=== PATIENT | male | born 1965 | race Caucasian/White ===

== ENCOUNTER 2016-10-19 19:39 | Emergency (ER) | payer MEDICAID, OTHER ==
[~2016-10-19] VITALS: Ht 175.3 cm; Wt 60.0 kg
[2016-10-19 20:08] VITALS: BP 141/83; PULSE 83; RESP 18; TEMP 98.3; O2SAT 97
[2016-10-19] MEDS ORDERED: BACT400T PO (22:50)
[2016-10-19] MEDS ORDERED: VENTAER INH (22:50)
[2016-10-19] MEDS ORDERED: SODIUM CHLOR 0.9% 1000 ML INJ 1,000 ML IV SCH (22:53)
[2016-10-19 23:00] VITALS: RESP 18; O2SAT 97
[2016-10-19] MEDS ORDERED: SODIUM CHLORIDE 0.9% FLUSH 10 ML FLUSH IV FLUSH PRN (23:00)
[2016-10-19] MEDS ORDERED: PANTOPRAZOLE SODIUM 40 MG VIAL IV PUSH ONE (23:00)
[2016-10-19] MEDS ORDERED: ONDANSETRON HCL 4 MG/2 ML VIAL IVP ONE (23:00)
[2016-10-19] MEDS ORDERED: KETOROLAC TROMETHAMINE 30 MG/ML (IVP) VIAL IVP ONE (23:00)
--- NOTE | 2016-10-19 23:55 | PD ---
HPI Chief Complaint: Abdominal Pain Time Seen by Provider: 22:53 Travel History International Travel<30 days: No Contact w/Intl Traveler<30days: No Traveled to known affect area: No History of Present Illness HPI 50-year-old male presents to the emergency department by private transportation for evaluation of 2 days of abdominal pain. Patient also complains of chronic back pain. Patient reports he recently completed a 4 week course of antibiotic and is on oral Bactrim twice daily for a back skin infection. Patient denies having any surgery for his back infection. Patient does not know if he had an MRI. Patient presents with paperwork from [place] where he was reportedly admitted. Patient states he admitted to the hospital for 18 days. Paperwork does suggest that he underwent a transesophageal echocardiogram but patient does not recall this and does not recall a diagnosis of epidural abscess or endocarditis. Patient admits to substance use and states he is only recently been using marijuana but has used IV drugs in the past "not since March 2016 ". Patient denies any fever or chills. Patient reports that he is here because of his abdominal pain. Patient is not reporting lower extremity numbness tingling or weakness; does have chronic referred pain to the left lower extremity associated with his chronic back pain. No bladder or bowel dysfunction. Patient denies any fever or chills. Denies any vomiting or diarrhea. Patient rates his abdominal pain 10/10 in intensity. Patient unable to identify exacerbating or alleviating factors. Patient reports that he is here visiting from [place] and staying with his daughter. PFSH Past Medical History Narrative Medical asthma, tobacco use substance use; nursing notes reviewed Asthma: Yes Diminished Hearing: No Respiratory: Yes Immunizations Current: Yes Tetanus Vaccination: Unknown Influenza Vaccination: No Social History Alcohol Use: No Tobacco Use: Yes Substance Use: No Allergies-Medications (Allergen,Severity, Reaction): Coded Allergies: No Known Allergies (Unverified , 10/19/16) Reported Meds & Prescriptions Reported Meds & Active Scripts Active Protonix (Pantoprazole Sodium) 40 Mg Tab 40 Mg PO DAILY 14 Days Reported Bactrim (Sulfamethoxazole-Trimethoprim) 400-80 Mg Tab 1 Tab PO BID Ventolin Hfa 18 GM Inh (Albuterol Sulfate) 90 Mcg/Act Aer 2 Puff INH Q4-6H PRN Review of Systems Except as stated in HPI: all other systems reviewed are Neg General / Constitutional: No: Fever, Chills HENT: No: Congestion Cardiovascular: No: Chest Pain or Discomfort Respiratory: No: Cough, Shortness of Breath Gastrointestinal: Positive: Nausea, Abdominal Pain, No: Vomiting, Diarrhea, Hematemesis, Hematochezia, Loss of Appetite Genitourinary: No: Urgency, Frequency, Dysuria, Decreased Urinary Output, Hesitancy, Dribbling, Incontinence Musculoskeletal: Positive: Myalgias, Arthralgias, Pain (chonic back pain) Skin: No Rash Neurologic: No: Weakness, Dizziness, Syncope, Focal Abnormalities, Coordination Problem, Paresthesia, Incontinence, Sensory Disturbance Psychiatric: No: Anxiety Endocrine: No: Heat Intolerance Hematologic/Lymphatic: No: Easy Bruising Physical Exam Narrative GENERAL: Well-developed well-nourished male in no acute distress no respiratory distress laying prone on the exam stretcher. SKIN: Warm and dry. HEAD: Normocephalic. EYES: No scleral icterus. No injection or drainage. NECK: Supple, trachea midline. No JVD or lymphadenopathy. CARDIOVASCULAR: Regular rate and rhythm without murmurs, gallops, or rubs. RESPIRATORY: Breath sounds equal bilaterally. No accessory muscle use. GASTROINTESTINAL: Abdomen soft, diffusely tender to palpation without guarding or rebound, nondistended. MUSCULOSKELETAL: No cyanosis, or edema. Bilateral motor strength 5 over 5 in intensity. Radial and dorsalis pedis pulses 2+ to palpation. BACK: Tender to palpation along the lower thoracic and lumbar spine no redness no induration no fluctuance no edema; without obvious deformity. No CVA tenderness. Pain in the left SI elevation of the left lower extremity. DTRs 2 + and symmetric without clonus. Sensory exam intact. Bilateral radial and dorsalis pedis pulses 2+ to palpation. Data Data Last Documented VS Vital Signs Date Time Temp Pulse Resp B/P Pulse Ox O2 Delivery O2 Flow Rate FiO2 10/20/16 03:25 87 18 101/75 98 10/20/16 02:10 Room Air 10/19/16 20:08 98.3 Orders Complete Blood Count With Diff (10/19/16 22:53) Comprehensive Metabolic Panel (10/19/16 22:53) Lipase (10/19/16 22:53) Lactic Acid (10/19/16 22:53) Prothrombin Time / Inr (Pt) (10/19/16 22:53) Act Partial Throm Time (Ptt) (10/19/16 22:53) Urinalysis - C+S If Indicated (10/19/16 22:53) Ct Abd/Pel W Iv Contrast(Rout) (10/19/16 22:53) Iv Access Insert/Monitor (10/19/16 22:53) Ecg Monitoring (10/19/16 22:53) Oximetry (10/19/16 22:53) Ondansetron Inj (Zofran Inj) (10/19/16 23:00) Sodium Chlor 0.9% 1000 Ml Inj (Ns 1000 M (10/19/16 22:53) Sodium Chloride 0.9% Flush (Ns Flush) (10/19/16 23:00) Electrocardiogram (10/19/16 22:53) Chest, Single Ap (10/19/16 22:53) Ketorolac Inj (Toradol Inj) (10/19/16 23:00) Westergren Sedimentation Rate (10/19/16 22:53) Pantoprazole Inj (Protonix Inj) (10/19/16 23:00) Alcohol (Ethanol) (10/19/16 22:53) Drug Screen, Random Urine (10/19/16 22:53) Magnesium (Mg) (10/19/16 22:53) Iohexol 350 Inj (Omnipaque 350 Inj) (10/20/16 01:15) Ketorolac Inj (Toradol Inj) (10/20/16 02:00) Pantoprazole (Protonix) (10/20/16 03:00) Labs Laboratory Tests Test 10/19/16 23:40 White Blood Count 6.5 TH/MM3 Red Blood Count 4.85 MIL/MM3 Hemoglobin 13.7 GM/DL Hematocrit 41.5 % Mean Corpuscular Volume 85.6 FL Mean Corpuscular Hemoglobin 28.2 PG Mean Corpuscular Hemoglobin 33.0 % Concent Red Cell Distribution Width 14.0 % Platelet Count 306 TH/MM3 Mean Platelet Volume 9.1 FL Neutrophils (%) (Auto) 66.2 % Lymphocytes (%) (Auto) 22.0 % Monocytes (%) (Auto) 7.3 % Eosinophils (%) (Auto) 1.4 % Basophils (%) (Auto) 3.1 % Neutrophils # (Auto) 4.3 TH/MM3 Lymphocytes # (Auto) 1.4 TH/MM3 Monocytes # (Auto) 0.5 TH/MM3 Eosinophils # (Auto) 0.1 TH/MM3 Basophils # (Auto) 0.2 TH/MM3 CBC Comment DIFF FINAL Differential Comment Erythrocyte Sedimentation Rate 43 mm/hr Prothrombin Time 11.0 SEC Prothromb Time International 1.0 RATIO Ratio Activated Partial 23.3 SEC Thromboplast Time Urine Color YELLOW Urine Turbidity CLEAR Urine pH 6.5 Urine Specific [place] 1.012 Urine Protein NEG mg/dL Urine Glucose (UA) NEG mg/dL Urine Ketones NEG mg/dL Urine Occult Blood NEG Urine Nitrite NEG Urine Bilirubin NEG Urine Leukocyte Esterase NEG Urine RBC 0-2 /hpf Urine WBC 0-2 /hpf Urine Squamous Epithelial 0-5 /hpf Cells Urine Amorphous Sediment SMALL Urine Bacteria NONE /hpf Microscopic Urinalysis Comment CULT NOT INDICATED Sodium Level 138 MEQ/L Potassium Level 4.2 MEQ/L Chloride Level 102 MEQ/L Carbon Dioxide Level 29.2 MEQ/L Anion Gap 7 MEQ/L Blood Urea Nitrogen 11 MG/DL Creatinine 0.72 MG/DL Estimat Glomerular Filtration 116 ML/MIN Rate Random Glucose 92 MG/DL Lactic Acid Level 1.4 mmol/L Calcium Level 9.5 MG/DL Magnesium Level 1.8 MG/DL Total Bilirubin 0.4 MG/DL Aspartate Amino Transf 41 U/L (AST/SGOT) Alanine Aminotransferase 54 U/L (ALT/SGPT) Alkaline Phosphatase 115 U/L Total Protein 7.1 GM/DL Albumin 2.6 GM/DL Lipase 155 U/L Urine Opiates Screen NEG Urine Barbiturates Screen NEG Urine Amphetamines Screen NEG Urine Benzodiazepines Screen NEG Urine Cocaine Screen NEG Urine Cannabinoids Screen POS Ethyl Alcohol Level LESS THAN 3 MG/DL [facility] Medical Decision Making Medical Screen Exam Complete: Yes Emergency Medical Condition: Yes Medical Record Reviewed: Yes Interpretation(s) Urine drug screen: Positive for cannabinoids Urinalysis: Within normal limits Lactic acid: 1.4, not elevated Sedimentation rate: 45, elevated EKG sinus rhythm rate [address] elevation or injury pattern change noted Last Impressions Chest X-Ray 10/19/162252 Signed Impressions: Service Date/Time: , October 19, 2016 23:47 - CONCLUSION: Hyperinflation suggesting COPD. No acute infiltrate or effusion. Cameron Madison Jr., MD Abdomen/Pelvis CT [id number]/19/162252 Signed Impressions: Service Date/Time: Thursday, October 20, 2016 00:48 - CONCLUSION: Normal examination. Cameron Madison Jr., MD CBC & BMP Diagram 10/19/16 23:40 Differential Diagnosis Abdominal pain, diverticulitis, colitis, appendicitis, UTI, pancreatitis, sciatica, HNP, epidural abscess, substance abuse, drug-seeking behavior Narrative Course IV access obtained specimens collected and sent for resulting imaging studies ordered Patient given IV fluids and Toradol 30 mg IV Patient administered Protonix [address] abdomen and pelvis pending At 3 AM patient is able to ambulate about the emergency department without any difficulty; patient is encouraged to follow-up with his primary care provider and complete course of oral antibiotic; she has no reproducible tenderness to direct palpation along the lumbar spine no bladder or bowel dysfunction and has chronic back pain with referred sciatica affecting the left lower extremity. No lower extremity numbness tingling or weakness. No clonus or hyperreflexia. Sensory and motor exams are intact. Abdomen is soft and nontender at this time. CT abdomen and pelvis reveals no acute abnormality. Patient will be discharged with prescription for Protonix for gastritis. Diagnosis Primary Impression: Gastritis Qualified Code: K29.00 - Acute gastritis without hemorrhage, unspecified gastritis type Additional Impression: Sciatica of left side Referrals: Primary Care Physician 1 day Patient Instructions: General Instructions Additional Instructions: Apply moist heat to low back area for comfort purposes Monitor temperature every 4 hours with thermometer take as needed acetaminophen/ Tylenol for fever 100.4F or greater Avoid nonsteroidal anti-inflammatory medication such as ibuprofen/Advil/Motrin or Aleve/Naprosyn/naproxen Take Protonix daily as prescribed Complete course of antibiotic as prescribed Return to the emergency department for any concerns or change in condition Med/Other Pt SpecificInfo: Prescription(s) given Scripts Pantoprazole (Protonix)40 Mg Tab40 Mg PO DAILY 14 Days Ref 0 Prov:Christina Boateng MD 10/20/16 Disposition: 01 DISCHARGE HOME Condition: Stable Christina Boateng MD Oct 19, 2016 23:55
[2016-10-19 23:59] LABS: BLOOD, URINE NEG (NEG); GLUCOSE,URINE NEG (NEG); KETONE, URINE NEG (NEG); NITRITE,URINE NEG (NEG); PH, URINE 6.5 (5.0-8.5)
[2016-10-20 00:04] LABS: AUTOMATED NEUTROPHIL # 4.3 TH/MM3 (1.8-7.7); BASOPHIL # 0.2 TH/MM3 (0-0.2); BASOPHIL % 3.1 % (0.0-2.0); EOSINOPHIL # 0.1 TH/MM3 (0-0.4); EOSINOPHIL % 1.4 % (0.0-4.0); HEMATOCRIT 41.5 % (39.0-51.0); HEMO FLAGS DIFF FINAL; LYMPHOCYTE # 1.4 TH/MM3 (1.0-4.8); MEAN CELL VOLUME 85.6 FL (80.0-100.0); MEAN CORPUSCULAR HEMOGLOBIN 28.2 PG (27.0-34.0); MONO % 7.3 % (0.0-8.0); NEUT % 66.2 % (16.0-70.0); PLATELET COUNT 306 TH/MM3 (150-450); RED BLOOD COUNT 4.85 MIL/MM3 (4.50-5.90); WHITE BLOOD COUNT 6.5 TH/MM3 (4.0-11.0)
[2016-10-20 00:09] LABS: URINE COLOR YELLOW (YELLW/STRAW); WBC, URINE 0-2 /hpf (0-5)
[2016-10-20 00:10] VITALS: BP 163/89; PULSE 63; RESP 18; O2SAT 100
[2016-10-20 00:10] LABS: AMPHETAMINE, URINE NEG (NEG); BARBITURATES, URINE NEG (NEG); COCAINE, URINE NEG (NEG); COMMENT (UR) CULT NOT INDICATED; CULTURE IF INDICATED CULT NOT INDICATED; RBC, URINE 0-2 /hpf (0-3); SQUAMOUS EPITHELIAL CELL URINE 0-5 /hpf (0-5)
[2016-10-20 00:11] LABS: CHLORIDE 102 MEQ/L (98-107); POTASSIUM 4.2 MEQ/L (3.5-5.1); SODIUM (NA) 138 MEQ/L (136-145)
[2016-10-20 00:15] LABS: ANION GAP 7 MEQ/L (5-15); APTT (PATIENT) 23.3 SEC (24.3-30.1); BICARBONATE 29.2 MEQ/L (21.0-32.0); BLOOD UREA NITROGEN 11 MG/DL (7-18); MAGNESIUM 1.8 MG/DL (1.5-2.5)
[2016-10-20 00:18] LABS: ALT (GPT) 54 U/L (12-78); AST (GOT) 41 U/L (15-37); GLOMERULAR FILTRATION RATE 116 ML/MIN (>89)
[2016-10-20 00:20] LABS: TOTAL BILIRUBIN ADULT 0.4 MG/DL (0.2-1.0)
[2016-10-20 00:21] LABS: ALKALINE PHOSPHATASE 115 U/L (45-117)
--- NOTE | 2016-10-20 00:25 | RADHPO ---
EXAM DATE/TIME: 10/19/2016 23:47 [facility] COMPARISON: No previous studies available for comparison. INDICATIONS : Chest pain for 3 weeks MEDICAL HISTORY : None. SURGICAL HISTORY : None. ENCOUNTER: Initial ACUITY: 3 weeks PAIN SCORE: 10/10 LOCATION: Bilateral chest FINDINGS: 2 portable frontal views of the chest demonstrate the lungs to be symmetrically aerated without evide nce of mass, infiltrate or effusion. The lungs are hyperinflated. 2 small calcified granulomas are se en involving the right upper lobe. The cardiomediastinal contours are unremarkable. Osseous structu res are intact. CONCLUSION: Hyperinflation suggesting COPD. No acute infiltrate or effusion. Cameron Madison Jr., MD on October 20, 2016 at 0:23 Board Certified Radiologist. This report was verified electronically.
[2016-10-20] MEDS ORDERED: IOHEXOL 350 MG/ML 10 ML VIAL (for RAD DIAG) IV ONE (01:15)
[2016-10-20 01:18] VITALS: BP 125/82; PULSE 90; RESP 18; O2SAT 98
--- NOTE | 2016-10-20 01:29 | RADHPO ---
EXAM DATE/TIME: 10/20/2016 00:48 [facility] COMPARISON: No previous studies available for comparison. INDICATIONS : Diffuse abdominal pain for two days. IV CONTRAST: 96 cc Omnipaque 350 (iohexol) IV ORAL CONTRAST: No oral contrast ingested. RADIATION DOSE: 5.03 CTDIvol (mGy) MEDICAL HISTORY : None SURGICAL HISTORY : None. ENCOUNTER: Initial ACUITY: 2 days PAIN SCALE: 6/10 LOCATION: Abdomen. TECHNIQUE: Volumetric scanning of the abdomen and pelvis was performed. Using automated exposure control and ad justment of the mA and/or kV according to patient size, radiation dose was kept as low as reasonably achievable to obtain optimal diagnostic quality images. FINDINGS: LOWER LUNGS: The visualized lower lungs are clear. LIVER: Homogeneous density without lesion. There is no dilation of the biliary tree. No calcified gallston es. SPLEEN: Normal size without lesion. PANCREAS: Within normal limits. KIDNEYS: Normal in size and shape. There is no mass, stone or hydronephrosis. ADRENAL GLANDS: Within normal limits. VASCULAR: There is no aortic aneurysm. BOWEL/MESENTERY: The stomach, small bowel, and colon demonstrate no acute abnormality. There is no free intraperitone al air or fluid. ABDOMINAL WALL: Within normal limits. RETROPERITONEUM: There is no lymphadenopathy. BLADDER: No wall thickening or mass. REPRODUCTIVE: Within normal limits. INGUINAL: There is no lymphadenopathy or hernia. MUSCULOSKELETAL: Within normal limits for patient age. CONCLUSION: Normal examination. Cameron Madison Jr., MD on October 20, 2016 at 1:26 Board Certified Radiologist. This report was verified electronically.
[2016-10-20] MEDS ORDERED: KETOROLAC TROMETHAMINE 30 MG/ML (IVP) VIAL IV PUSH ONE (02:00)
[2016-10-20 02:10] VITALS: BP 111/76; PULSE 74; RESP 17; O2SAT 95
[2016-10-20] MEDS ORDERED: PANTOPRAZOLE SOD 40 MG DELAYED RELEASE TAB PO ONE (03:00)
[2016-10-20] MEDS ORDERED: PROT40TA PO (03:00)
[2016-10-20 03:08] VITALS: RESP 18
[2016-10-20 03:25] VITALS: BP 101/75
--- NOTE | 2016-10-20 18:46 | EKG ---
Date Performed: 10/20/2016 Time Performed: 01:34:34 PTAGE: 50 years EKG: Sinus arrhythmia. Septal ST-T changes are nonspecific Borderline ECG NO PREVIOUS TRACING DOCTOR: Yasir Phillips Interpretating Date/Time 10/20/2016 18:57:26
== END 2016-10-20 03:27 | disposition home or self-care (01) ==
LOC: PHED 19:39
DX: K29.00 Acute gastritis without bleeding (principal); M54.42 Lumbago with sciatica, left side; G89.29 Other chronic pain; I49.8 Other specified cardiac arrhythmias; J45.909 Unspecified asthma, uncomplicated; Z72.0 Tobacco use; F19.10 Other psychoactive substance abuse, uncomplicated; R11.0 Nausea
CPT/HCPCS: 71010; 74177; 80053; 80307; 81001; 83605; 83690; 83735; 85025; 85610; 85652; 85730; 93005; 96361; 96374; 96375; 96376; 99284; C9113; J1885; J2405; J7030; Q9967

== ENCOUNTER 2016-11-22 13:11 | Inpatient (IN) | payer MEDICAID ==
[~2016-11-22] VITALS: Ht 175.3 cm; Wt 68.0 kg
[2016-11-22] VITALS (8 sets, daily range): BP systolic 106–117; BP diastolic 61–85; PULSE 85–126; RESP 18–24; TEMP 96.4–100.7; O2SAT 93–96
[~2016-11-22 13:11] MED LIST: BACT400T PO; PROT40TA PO; VENTAER INH
[2016-11-22] MEDS ORDERED: SODIUM CHLOR 0.9% 1000 ML INJ 1,000 ML IV ONE ×2 (13:29)
[2016-11-22] MEDS ORDERED: SODIUM CHLOR 0.9% 1000 ML INJ 100 ML IV ONE (13:29)
[2016-11-22] MEDS ORDERED: TETANUS/DIPHTHERIA TOXOID ADULT 0.5 ML VIAL IM ONE (13:30)
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
--- NOTE | 2016-11-22 13:56 | PD ---
Physical Exam Date Seen by Provider: November 22, 2016 Time Seen by Provider: 13:49 Narrative 51-year-old male with a previous history of lower extremity DVT, previous epidural abscess, presents today with complaints of left lower back pain, low- grade fever, tachycardia. The patient was admitted for several weeks when he lived in [place] for the epidural abscess. He presents today with complaints of worsening pain in his low back and concerns that this may be recurrence of his epidural abscess. He also reports head pain and face pain from a fall. Data Data Last Documented VS Vital Signs Date Time Temp Pulse Resp B/P Pulse Ox O2 Delivery O2 Flow Rate FiO2 11/22/16 16:56 103 18 117/68 11/22/16 15:15 Room Air 11/22/16 13:32 93 11/22/16 13:31 100.7 Orders Electrocardiogram (11/22/16 13:29) Complete Blood Count With Diff (11/22/16 13:29) Comprehensive Metabolic Panel (11/22/16 13:29) Prothrombin Time / Inr (Pt) (11/22/16 13:29) Act Partial Throm Time (Ptt) (11/22/16 13:29) Lactic Acid Sepsis Protocol (11/22/16 13:29) Magnesium (Mg) (11/22/16 13:29) Urinalysis - C+S If Indicated (11/22/16 13:29) Blood Culture (11/22/16 13:29) Chest, Single Ap (11/22/16 13:29) Blood Glucose (11/22/16 13:29) Ecg Monitoring (11/22/16 13:29) Iv Access Insert/Monitor (11/22/16 13:29) Oximetry (11/22/16 13:29) Oxygen Administration (11/22/16 13:29) Sodium Chlor 0.9% 1000 Ml Inj (Ns 1000 M (11/22/16 13:29) Sodium Chlor 0.9% 1000 Ml Inj (Ns 1000 M (11/22/16 13:29) Sodium Chlor 0.9% 1000 Ml Inj (Ns 1000 M (11/22/16 13:29) Ct Brain W/O Iv Contrast(Rout) (11/22/16 ) Ct Facial Bones W/O Iv Cont (11/22/16 ) Mri Sacrum/Coccyx W&W/O Cont (11/22/16 ) Mri L Spine W&W/O Contrast (11/22/16 ) Tetanus/Diphtheria Tox Adult (Tetanus/Di (11/22/16 13:30) Creatine Kinase (Cpk) (11/22/16 13:29) Us Leg Venous Doppler (11/22/16 13:33) Vancomycin Inj (Vancomycin Inj) (11/22/16 14:30) Piperacil-Tazo 3.375 Gm Premix (Zosyn 3. (11/22/16 14:30) CKMB (11/22/16 13:40) CKMB% (11/22/16 13:40) Morphine Inj (Morphine Inj) (11/22/16 16:00) Labs Laboratory Tests Test 11/22/16 13:40 White Blood Count 11.0 TH/MM3 Red Blood Count 4.43 MIL/MM3 Hemoglobin 12.8 GM/DL Hematocrit 37.5 % Mean Corpuscular Volume 84.8 FL Mean Corpuscular Hemoglobin 28.9 PG Mean Corpuscular Hemoglobin 34.1 % Concent Red Cell Distribution Width 14.3 % Platelet Count 151 TH/MM3 Mean Platelet Volume 8.4 FL Neutrophils (%) (Auto) 89.8 % Lymphocytes (%) (Auto) 4.7 % Monocytes (%) (Auto) 5.0 % Eosinophils (%) (Auto) 0.4 % Basophils (%) (Auto) 0.1 % Neutrophils # (Auto) 9.9 TH/MM3 Lymphocytes # (Auto) 0.5 TH/MM3 Monocytes # (Auto) 0.6 TH/MM3 Eosinophils # (Auto) 0.0 TH/MM3 Basophils # (Auto) 0.0 TH/MM3 CBC Comment DIFF FINAL Differential Comment Prothrombin Time 11.4 SEC Prothromb Time International 1.0 RATIO Ratio Activated Partial 25.3 SEC Thromboplast Time Sodium Level 137 MEQ/L Potassium Level 3.5 MEQ/L Chloride Level 101 MEQ/L Carbon Dioxide Level 24.1 MEQ/L Anion Gap 12 MEQ/L Blood Urea Nitrogen 13 MG/DL Creatinine 1.18 MG/DL Estimat Glomerular Filtration 65 ML/MIN Rate Random Glucose 131 MG/DL Lactic Acid Level 5.8 mmol/L Calcium Level 8.6 MG/DL Magnesium Level 2.5 MG/DL Total Bilirubin 0.6 MG/DL Aspartate Amino Transf 188 U/L (AST/SGOT) Alanine Aminotransferase 51 U/L (ALT/SGPT) Alkaline Phosphatase 94 U/L Total Creatine Kinase 9636 U/L Creatine Kinase MB 38.5 NG/ML Creatine Kinase MB % 0.4 % Total Protein 5.8 GM/DL Albumin 2.8 GM/DL [facility] Medical Record Reviewed: Yes Supervised Visit with LACEY: Yes Differential Diagnosis Recurrent epidural abscess versus pneumonia versus UTI versus metabolic derangement Narrative Course 51-year-old male presents with fever back pain. The patient has a history of previous IVD drug use and epidural abscess. He was concerned he may have an epidural abscess. The patient meet severe sepsis criteria by labs and vital signs. He's been started on vancomycin and Zosyn. Working diagnosis is sepsis secondary to the sacroiliitis. There is a call out to the [facility] hospitalist team for admission. He meets full admission criteria. Sepsis Criteria SIRS Criteria (2 or more): Heart rate over 90, WBC > 67795, < 4000 or > 10% bands Severe Sepsis (+one): Lactate >2 Septic Shock Criteria: Lactic acid >=4 Diagnosis Primary Impression: Sepsis Additional Impressions: Sacroiliitis history of epidural abscess previous history of IVD drug use Rhabdomyolysis Admitting Information Admitting Physician Requests: Admit Bigg Barahona MD November 22, 2016 13:56
[2016-11-22 13:58] LABS: AUTOMATED NEUTROPHIL # 9.9 TH/MM3 (1.8-7.7); BASOPHIL % 0.1 % (0.0-2.0); EOSINOPHIL % 0.4 % (0.0-4.0); HEMATOCRIT 37.5 % (39.0-51.0); HEMO FLAGS DIFF FINAL; LYMPH % 4.7 % (9.0-44.0); LYMPHOCYTE # 0.5 TH/MM3 (1.0-4.8); MEAN CELL VOLUME 84.8 FL (80.0-100.0); MEAN CORPUSCULAR HEMOGLOBIN 28.9 PG (27.0-34.0); MEAN CORPUSCULAR HGB CONC 34.1 % (32.0-36.0); NEUT % 89.8 % (16.0-70.0); PLATELET COUNT 151 TH/MM3 (150-450); RED BLOOD COUNT 4.43 MIL/MM3 (4.50-5.90); RED CELL DISTRIBUTION WIDTH 14.3 % (11.6-17.2)
[2016-11-22 14:07] LABS: APTT (PATIENT) 25.3 SEC (24.3-30.1); PROTHROMBIN TIME - PATIENT 11.4 SEC (9.8-11.6)
[2016-11-22 14:20] LABS: ALT (GPT) 51 U/L (12-78); ANION GAP 12 MEQ/L (5-15); AST (GOT) 188 U/L (15-37); BICARBONATE 24.1 MEQ/L (21.0-32.0); BLOOD UREA NITROGEN 13 MG/DL (7-18); CHLORIDE 101 MEQ/L (98-107); GLOMERULAR FILTRATION RATE 65 ML/MIN (>89); MAGNESIUM 2.5 MG/DL (1.5-2.5); POTASSIUM 3.5 MEQ/L (3.5-5.1); SODIUM (NA) 137 MEQ/L (136-145)
[2016-11-22] MEDS ORDERED: PIPERACIL-TAZO 3.375 GM PREMIX 50 ML IV ONE (14:30)
[2016-11-22] MEDS ORDERED: VANCOMYCIN INJ 1,000 MG in SODIUM CHLOR 0.9% 250 ML INJ 250 ML IV ONE (14:30)
--- NOTE | 2016-11-22 14:31 | RADRPT ---
EXAM DATE/TIME: 11/22/2016 13:43 [facility] COMPARISON: CHEST SINGLE AP, October 19, 2016, 23:47. INDICATIONS : Fever and weakness. Patient fell today. MEDICAL HISTORY : Asthma. SURGICAL HISTORY : None. ENCOUNTER: Initial ACUITY: 1 day PAIN SCORE: 0/10 LOCATION: Bilateral chest FINDINGS: A single view of the chest demonstrates the lungs to be symmetrically aerated without evidence of mas s, infiltrate or effusion. The cardiomediastinal contours are unremarkable. Osseous structures are intact. CONCLUSION: No acute cardiopulmonary process. Fabio Srivastava MD on November 22, 2016 at 14:29 Board Certified Radiologist. This report was verified electronically.
[2016-11-22] MEDS ORDERED: GADODIAMIDE PF 287 MG/ML 5 ML VIAL (for RAD MRI) IV ONE (14:41)
[2016-11-22 14:45] LABS: ALKALINE PHOSPHATASE 94 U/L (45-117); CREATINE KINASE 9636 U/L (39-308); TOTAL BILIRUBIN ADULT 0.6 MG/DL (0.2-1.0)
--- NOTE | 2016-11-22 14:45 | RADRPT ---
EXAM DATE/TIME: 11/22/2016 14:26 [facility] COMPARISON: No previous studies available for comparison. INDICATIONS : Cephalgia. RADIATION DOSE: 45.80 CTDIvol (mGy) MEDICAL HISTORY : Cardiovascular disease. SURGICAL HISTORY : None. ENCOUNTER: Initial ACUITY: 2 days PAIN SCALE: 1/10 LOCATION: Bilateral cranial TECHNIQUE: Multiple contiguous axial images were obtained of the head. Using automated exposure control and adj ustment of the mA and/or kV according to patient size, radiation dose was kept as low as reasonably a chievable to obtain optimal diagnostic quality images. FINDINGS: CEREBRUM: The ventricles are normal for age. No evidence of midline shift, mass lesion, hemorrhage or acute in farction. No extra-axial fluid collections are seen. POSTERIOR FOSSA: The cerebellum and brainstem are intact. The 4th ventricle is midline. The cerebellopontine angle i s unremarkable. EXTRACRANIAL: The visualized portion of the orbits is intact. SKULL: The calvaria is intact. No evidence of skull fracture. CONCLUSION: Normal examination. Stevie Miller MD on November 22, 2016 at 14:43 Board Certified Radiologist. This report was verified electronically.
--- NOTE | 2016-11-22 14:59 | RADRPT ---
EXAM DATE/TIME: 11/22/2016 14:29 [facility] COMPARISON: No previous studies available for comparison. INDICATIONS : Cephalgia. RADIATION DOSE: 36.48 CTDIvol (mGy) MEDICAL HISTORY : Cardiovascular disease. SURGICAL HISTORY : None. ENCOUNTER: Initial ACUITY: 2 days PAIN SCORE: 1/10 LOCATION: Bilateral facial region. TECHNIQUE: Volumetric scanning of the facial bones was performed. Using automated exposure control and adjustme nt of the mA and/or kV according to patient size, radiation dose was kept as low as reasonably achiev able to obtain optimal diagnostic quality images. FINDINGS: ORBITS: The orbital and infraorbital osseous structures are intact. The retroconal structures have a normal configuration. No radiopaque foreign bodies are seen. NASAL BONE: The nasal bone and maxillary spine are intact ZYGOMATIC ARCHES: Symmetric without evidence of fracture. SINUSES: The maxillary, ethmoid and frontal sinuses are intact. No air-fluid levels seen. NASAL CAVITY: The nasal septum is intact and midline. The lacrimal ducts are intact. SOFT TISSUES: No radiopaque foreign bodies seen. No soft-tissue swelling is seen. INTRACRANIAL: No intracranial air seen. CRIBIFORM PLATE: Grossly intact. CONCLUSION: Normal examination. Stevie Miller MD on November 22, 2016 at 14:56 Board Certified Radiologist. This report was verified electronically.
[2016-11-22 15:02] LABS: CKMB 38.5 NG/ML (0.5-3.6)
[2016-11-22 15:53] LABS: LACTIC ACID GHOST NOT REPORTABLE
[2016-11-22] MEDS ORDERED: MORPHINE SULFATE 4 MG/ML INJ IV PUSH ONE (16:00)
--- NOTE | 2016-11-22 16:05 | RADRPT ---
EXAM DATE/TIME: 11/22/2016 13:49 [facility] COMPARISON: No previous studies available for comparison. INDICATIONS : Left leg pain. MEDICAL HISTORY : Asthma. GERD. Staph infection. SURGICAL HISTORY : None. ENCOUNTER: Initial ACUITY: 1 day PAIN SCORE: 10/10 LOCATION: Left leg. TECHNIQUE: Venous ultrasound of the leg was performed from the inguinal ligament to the proximal calf. Real-yamile e, color Doppler and spectral tracing, compression and augmentation techniques were used. FINDINGS: There is normal compressibility of the deep venous system from the inguinal region to the proximal ca lf. No echogenic clot is seen in the lumen of the common femoral, femoral, popliteal, and posterior tibial veins. There is a normal response of the venous system to proximal and distal augmentation an d respiration. CONCLUSION: Negative exam. No sonographic or Doppler findings of deep venous thrombosis. Fabio Srivastava MD on November 22, 2016 at 16:03 Board Certified Radiologist. This report was verified electronically.
--- NOTE | 2016-11-22 16:14 | RADRPT ---
EXAM DATE/TIME: 11/22/2016 14:41 [facility] COMPARISON: No previous studies available for comparison. INDICATIONS : Severe lower back pain with inability to walk and history of spinal staff infection. CONTRAST: 13 cc Omniscan (gadodiamide) IV MEDICAL HISTORY : Chronic obstructive pulmonary disease. SURGICAL HISTORY : Armpit abscess. ENCOUNTER: Initial ACUITY: 2 weeks PAIN SCORE: 6/10 LOCATION: lower back TECHNIQUE: Multiplanar multisequence MRI of the lumbar spine was performed with and without contrast. FINDINGS: The most caudal appearing lumbar vertebra is numbered as L5. VERTEBRAE: Homogeneous signal. Normal alignment. Scoliosis. CONUS: Normal level and configuration. POST CONTRAST: No abnormal areas of contrast enhancement are seen. Distended urinary bladder. T12-L1: The thecal sac has a normal diameter. No evidence of disc bulge or protrusion. The neural foramina are patent bilaterally. L1-L2: The thecal sac has a normal diameter. No evidence of disc bulge or protrusion. The neural foramina are patent bilaterally. L2-L3: Minimal broad-based disc bulge abuts ventral thecal sac without canal stenosis. The neural foramina are patent bilaterally. L3-L4: Minimal broad-based disc bulge abuts ventral thecal sac without canal stenosis. The neural foramina are patent bilaterally. L4-L5: The thecal sac has a normal diameter. No evidence of disc bulge or protrusion. The neural foramina are patent bilaterally. L5-S1: The thecal sac has a normal diameter. No evidence of disc bulge or protrusion. The neural foramina are patent bilaterally. CONCLUSION: 1. Scoliotic changes. 2. Minimal disc bulges at L2-3 and L3-4 levels. 3. No canal stenosis. 4. No epidural abscess. Jay Melendrez MD on November 22, 2016 at 16:10 Board Certified Radiologist. This report was verified electronically.
--- NOTE | 2016-11-22 16:29 | RADRPT ---
EXAM DATE/TIME: 11/22/2016 14:41 [facility] COMPARISON: MRI LUMBAR SPINE W & W/O CONTRAST, November 22, 2016, 14:41. INDICATIONS : Severe lower back pain with inability to walk and history of spinal staff infection. CONTRAST: 13 cc Omniscan (gadodiamide) IV MEDICAL HISTORY : Chronic obstructive pulmonary disease. SURGICAL HISTORY : armpit abscess ENCOUNTER: Initial ACUITY: 2 weeks PAIN SCORE: 6/10 LOCATION: lower back TECHNIQUE: Multiplanar multisequence MRI examination of the sacrum/coccyx was performed. FINDINGS: There is abnormal signal within and adjacent to the left sacroiliac joint with marrow edema and enhan cement. There is no significant joint fluid identified and no adjacent pelvic fluid collection is devin ntified. The contralateral right SI joint is intact and unremarkable. The bony elements of the pelvis are otherwise unremarkable. There is no evidence of soft tissue pelvic mass or adenopathy. Urinary b ladder is mildly distended. CONCLUSION: Left sacroiliitis. Adjacent bony changes are nonspecific with osteomyelitis not excluded. Alexis Duong MD on November 22, 2016 at 16:21 Board Certified Radiologist. This report was verified electronically.
[2016-11-22] MEDS ORDERED: ONDANSETRON HCL 4 MG/2 ML VIAL IVP PRN (17:30)
[2016-11-22] MEDS ORDERED: SODIUM CHLORIDE 0.9% FLUSH 10 ML FLUSH IV FLUSH PRN (17:30)
[2016-11-22] MEDS ORDERED: NALOXONE HCL 0.4 MG/ML AMP IV PRN (17:30)
[2016-11-22] MEDS ORDERED: Vancomycin Consult Pharmacy 1 EA OTHER SCH (17:30)
[2016-11-22] MEDS ORDERED: ENALAPRILAT 1.25 MG/ML VIAL IV PUSH PRN (17:30)
[2016-11-22] MEDS ORDERED: ACETAMINOPHEN/HYDROcodone 325 MG/5 MG TAB PO PRN (17:30)
[2016-11-22] MEDS ORDERED: ACETAMINOPHEN 325 MG TAB PO PRN ×2 (17:30)
[2016-11-22] MEDS ORDERED: MORPHINE SULFATE 4 MG/ML INJ IV PRN (17:30)
--- NOTE | 2016-11-22 17:34 | HHI.HP ---
[facility] No Primary Care Physician Admission Diagnosis severe sepsis, sacroiliitis, rhabdomyolysis Diagnoses: (1) Sepsis (2) Sacroiliitis (3) Rhabdomyolysis Chief Complaint: Back pain Travel History International Travel<30 Days: No Contact w/Intl Traveler <30 Da: No Traveled to Known Affected Are: No Sepsis Criteria SIRS Criteria (2 or more): Heart rate over 90, WBC > 84372, < 4000 or > 10% bands Severe Sepsis (+one): Lactate >2 History of Present Illness 51-year-old man was brought to the ED by EMS for evaluation of worsening low back pain. Patient states, he was recently discharged from [facility] on October 17 after a hospitalization of 18 days for which he was treated for sepsis, bacteremia and an abscess of the lower back. He was discharged on 2 month supply of oral Bactrim. Patient recently moved down to [place] visiting his daughter and states, over the past 5 days is have worsening back pain rated 10/10 in intensity with radiation to mostly left lower extremity. Patient reports tripping and fell down today and hitting his left shoulder as well as his left knee and face for which EMS was called. Her EMR, patient had temperature of 100 heart rate of 140s for which patient was treated with 500 mL bolus fluids. He complains of intermittent myalgia. 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 Denies any IV drug use. He currently denies any GI bleed Review of Systems Except as stated in HPI: all other systems reviewed are Neg Past Family Social History Past Medical History Asthma: Yes Cardiovascular Problems: Yes Past Surgical History No Previous Surgery Reported Medications Protonix (Pantoprazole Sodium) 40 Mg Tab 40 Mg PO DAILY 14 Days Bactrim (Sulfamethoxazole-Trimethoprim) 400-80 Mg Tab 1 Tab PO BID Ventolin Hfa 18 GM Inh (Albuterol Sulfate) 90 Mcg/Act Aer 2 Puff INH Q4-6H PRN Allergies: Coded Allergies: No Known Allergies (Unverified , 11/22/16) Family History Family history of heart condition Social History Alcohol Use: No Tobacco Use: Yes Substance Use: No Physical Exam Vital Signs Vital Signs Date Time Temp Pulse Resp B/P Pulse Ox O2 Delivery O2 Flow Rate FiO2 11/22/16 16:56 103 18 117/68 11/22/16 15:15 85 18 115/85 Room Air 11/22/16 13:55 124 20 106/66 11/22/16 13:32 93 Room Air 11/22/16 13:32 93 Room Air 11/22/16 13:31 100.7 11/22/16 13:27 Room Air 11/22/16 13:20 126 24 117/61 94 Physical Exam GENERAL: This is a well-nourished, well-developed patient, in mild apparent distress. SKIN: No rashes, ecchymoses or lesions. Cool and dry. HEAD: Atraumatic. Normocephalic. No temporal or scalp tenderness. EYES: Pupils equal round and reactive. Extraocular motions intact. No scleral icterus. No injection or drainage. ENT: Nose without bleeding, purulent drainage or septal hematoma. Throat without erythema, tonsillar hypertrophy or exudate. Uvula midline. Airway patent. NECK: Trachea midline. No JVD or lymphadenopathy. Supple, nontender, no meningeal signs. CARDIOVASCULAR: Regular rate and rhythm without murmurs, gallops, or rubs. RESPIRATORY: Clear to auscultation. Breath sounds equal bilaterally. No wheezes , rales, or rhonchi. GASTROINTESTINAL: Abdomen soft, non-tender, nondistended. No hepato-splenomegaly , or palpable masses. No guarding. MUSCULOSKELETAL: Extremities without clubbing, cyanosis, or edema. No joint tenderness, effusion, or edema noted. No calf tenderness. Negative Homans sign bilaterally. NEUROLOGICAL: Awake and alert. Cranial nerves II through XII intact. Motor and sensory grossly within normal limits. Five out of 5 muscle strength in all muscle groups. Normal speech. Laboratory Laboratory Tests Test 11/22/16 13:40 White Blood Count 11.0 Red Blood Count 4.43 Hemoglobin 12.8 Hematocrit 37.5 Mean Corpuscular Volume 84.8 Mean Corpuscular Hemoglobin 28.9 Mean Corpuscular Hemoglobin 34.1 Concent Red Cell Distribution Width 14.3 Platelet Count 151 Mean Platelet Volume 8.4 Neutrophils (%) (Auto) 89.8 Lymphocytes (%) (Auto) 4.7 Monocytes (%) (Auto) 5.0 Eosinophils (%) (Auto) 0.4 Basophils (%) (Auto) 0.1 Neutrophils # (Auto) 9.9 Lymphocytes # (Auto) 0.5 Monocytes # (Auto) 0.6 Eosinophils # (Auto) 0.0 Basophils # (Auto) 0.0 CBC Comment DIFF FINAL Differential Comment Prothrombin Time 11.4 Prothromb Time International 1.0 Ratio Activated Partial 25.3 Thromboplast Time Sodium Level 137 Potassium Level 3.5 Chloride Level 101 Carbon Dioxide Level 24.1 Anion Gap 12 Blood Urea Nitrogen 13 Creatinine 1.18 Estimat Glomerular Filtration 65 Rate Random Glucose 131 Lactic Acid Level 5.8 Calcium Level 8.6 Magnesium Level 2.5 Total Bilirubin 0.6 Aspartate Amino Transf 188 (AST/SGOT) Alanine Aminotransferase 51 (ALT/SGPT) Alkaline Phosphatase 94 Total Creatine Kinase 9636 Creatine Kinase MB 38.5 Creatine Kinase MB % 0.4 Total Protein 5.8 Albumin 2.8 Date/Time Procedure Status Source Growth 11/22/16 13:40 Aerobic Blood Culture Received Blood Peripheral Pending 11/22/16 13:40 Anaerobic Blood Culture Received Blood Peripheral Pending Result Diagram: 11/22/16 1340 11/22/16 1340 Imaging Last Impressions Lower Extremity Ultrasound 11/22/16 1333 Signed Impressions: Service Date/Time: Tuesday, November 22, 2016 13:49 - CONCLUSION: Negative exam. No sonographic or Doppler findings of deep venous thrombosis. Fabio Srivastava MD Chest X-Ray 11/22/16 1329 Signed Impressions: Service Date/Time: Tuesday, November 22, 2016 13:43 - CONCLUSION: No acute cardiopulmonary process. Fabio Srivastava MD Sacrum/Coccyx MRI 11/22/16 0000 Signed Impressions: Service Date/Time: Tuesday, November 22, 2016 14:41 - CONCLUSION: Left sacroiliitis. Adjacent bony changes are nonspecific with osteomyelitis not excluded. Alexis Duong MD Maxillofacial CT 11/22/16 0000 Signed Impressions: Service Date/Time: Tuesday, November 22, 2016 14:29 - CONCLUSION: Normal examination. Stevie Miller MD Lumbar Spine MRI 11/22/16 0000 Signed Impressions: Service Date/Time: Tuesday, November 22, 2016 14:41 - CONCLUSION: 1. Scoliotic changes. 2. Minimal disc bulges at L2-3 and L3-4 levels. 3. No canal stenosis. 4. No epidural abscess. Jay Melendrez MD Head CT 11/22/16 0000 Signed Impressions: Service Date/Time: Sunday, November 22, 2016 14:26 - CONCLUSION: Normal examination. Stevie Miller MD Assessment and Plan Problem List: (1) Sepsis ICD Code: A41.9 Status: Acute (2) Sacroiliitis ICD Code: M46.1 Status: Acute (3) Rhabdomyolysis ICD Code: M62.82 Status: Acute Assessment and Plan 51-year-old man with Severe sepsis:Heart rate over 90, WBC > 13103, < 4000 or > 10% bands and Lactate >2; source likely (sacroiliitis); status post vancomycin and Zosyn. Continue vancomycin IV pending culture reports Sacroiliitis Sacrum/coccyx MRI noted and review by me with finding of Left sacroiliitis. Adjacent bony changes are nonspecific with osteomyelitis not excluded Lumbar spine MRI with finding of Scoliotic changes. 2. Minimal disc bulges at L2 -3 and L3-4 levels. 3. No canal stenosis. 4. No epidural abscess Continue with vancomycin IV and consult infectious disease specialist Pain management with parenteral IV when necessary Consider consultation to neurosurgery Nontraumatic rhabdomyolysis Aggressive IV fluid hydration Monitor CK DVT prophylaxis: Bilateral SCDs Code Status Full code Discussed Condition With Patient, ED physician Physician Certification 2 Midnight Certification Type: Admission for Inpatient Services Order for Inpatient Services The services are ordered in accordance with Medicare regulations or non- Medicare payer requirements, as applicable. In the case of services not specified as inpatient-only, they are appropriately provided as inpatient services in accordance with the 2-midnight benchmark. Estimated LOS (days): 2 days is the estimated time the patient will need to remain in the hospital, assuming treatment plan goals are met and no additional complications. Post-Hospital Plan: Not yet determined Problem Qualifiers (1) Sepsis: Qualified Code: A41.9 - Sepsis, due to unspecified organism (2) Rhabdomyolysis: Qualified Code: M62.82 - Non-traumatic rhabdomyolysis Jay Saldana MD November 22, 2016 17:34
[2016-11-22 18:37] LABS: AMPHETAMINE, URINE NEG (NEG); BARBITURATES, URINE NEG (NEG); COCAINE, URINE NEG (NEG)
[2016-11-22] MEDS: SODIUM CHLOR 0.9% 1000 ML INJ 1,000 ML IV SCH (20:11)
[2016-11-22] MEDS: SODIUM CHLORIDE 0.9% FLUSH 10 ML FLUSH IV FLUSH SCH (20:12)
[2016-11-22] MEDS: DOCUSATE SODIUM 50 MG/SENNA 8.6 MG TAB PO SCH (21:00)
[2016-11-22] MEDS: ACETAMINOPHEN/HYDROcodone 325 MG/7.5 MG TAB PO PRN (21:34)
[2016-11-23 04:01] LABS: BACTERIA, URINE RARE /hpf; BLOOD, URINE MOD (NEG); GLUCOSE,URINE NEG (NEG); KETONE, URINE NEG (NEG); MUCUS URINE FEW /lpf (OCC); NITRITE,URINE NEG (NEG); URINE COLOR LIGHT-YELLOW (YELLW/STRAW)
[2016-11-23 04:02] LABS: COMMENT (UR) CATH-CULTURE IND; CULTURE IF INDICATED CATH CULTURE IND
[2016-11-23 05:35] LABS: AUTOMATED NEUTROPHIL # 3.7 TH/MM3 (1.8-7.7); BASOPHIL % 0.7 % (0.0-2.0); EOSINOPHIL # 0.2 TH/MM3 (0-0.4); EOSINOPHIL % 4.2 % (0.0-4.0); HEMATOCRIT 37.8 % (39.0-51.0); HEMO FLAGS DIFF FINAL; LYMPHOCYTE # 1.5 TH/MM3 (1.0-4.8); MEAN CELL VOLUME 86.1 FL (80.0-100.0); MEAN CORPUSCULAR HEMOGLOBIN 28.7 PG (27.0-34.0); MEAN CORPUSCULAR HGB CONC 33.4 % (32.0-36.0); MONO % 7.1 % (0.0-8.0); PLATELET COUNT 114 TH/MM3 (150-450); RED BLOOD COUNT 4.39 MIL/MM3 (4.50-5.90); RED CELL DISTRIBUTION WIDTH 14.2 % (11.6-17.2); WHITE BLOOD COUNT 5.9 TH/MM3 (4.0-11.0)
[2016-11-23 06:07] LABS: ALT (GPT) 68 U/L (12-78); ANION GAP 6 MEQ/L (5-15); AST (GOT) 399 U/L (15-37); BLOOD UREA NITROGEN 7 MG/DL (7-18); CHLORIDE 108 MEQ/L (98-107); GLOMERULAR FILTRATION RATE 179 ML/MIN (>89); POTASSIUM 3.9 MEQ/L (3.5-5.1); SODIUM (NA) 142 MEQ/L (136-145)
[2016-11-23 06:31] LABS: ALKALINE PHOSPHATASE 76 U/L (45-117); TOTAL BILIRUBIN ADULT 0.4 MG/DL (0.2-1.0)
[2016-11-23] MEDS: DOCUSATE SODIUM 50 MG/SENNA 8.6 MG TAB PO SCH ×2 (07:35→22:05)
[2016-11-23] MEDS: SODIUM CHLOR 0.9% 1000 ML INJ 1,000 ML IV SCH ×3 (07:35→22:05)
[2016-11-23] MEDS: SODIUM CHLORIDE 0.9% FLUSH 10 ML FLUSH IV FLUSH SCH ×2 (07:35→22:04)
[2016-11-23] MEDS: ACETAMINOPHEN/HYDROcodone 325 MG/7.5 MG TAB PO PRN ×4 (07:36→22:07)
[2016-11-23 08:00] VITALS: BP 131/74; PULSE 100; RESP 16; TEMP 97; O2SAT 90
[2016-11-23 08:08] LABS: CREATINE KINASE 24520 U/L (39-308)
[2016-11-23] MEDS ORDERED: VANCOMYCIN INJ 1,250 MG in SODIUM CHLOR 0.9% 250 ML INJ 250 ML IV SCH (09:00)
--- NOTE | 2016-11-23 09:17 | HHI.PR ---
Subjective Remarks Follow-up sacroiliitis/severe sepsis 11/23/16-patient seen and examined; complains of low back pain. Currently afebrile. Objective Vitals Vital Signs Date Time Temp Pulse Resp B/P Pulse Ox O2 Delivery O2 Flow Rate FiO2 11/23/16 08:00 97.0 100 16 131/74 90 11/22/16 22:00 96.4 97 20 112/69 95 11/22/16 18:58 102 18 111/68 96 Room Air 11/22/16 16:56 103 18 117/68 11/22/16 15:15 85 18 115/85 Room Air 11/22/16 13:55 124 20 106/66 11/22/16 13:32 93 Room Air 11/22/16 13:32 93 Room Air 11/22/16 13:31 100.7 11/22/16 13:27 Room Air 11/22/16 13:20 126 24 117/61 94 I/O 11/22/16 11/22/16 11/22/16 11/23/16 11/23/16 11/23/16 07:00 15:00 23:00 07:00 15:00 23:00 Intake Total 360 ml 1108 ml Output Total 225 ml 1000 ml Balance 135 ml 108 ml Intake Oral 360 ml 120 ml IV Total 988 ml Output Urine Total 225 ml 1000 ml # Bowel Movements 0 0 Result Diagram: 11/23/16 0414 11/23/16 0414 Imaging Last Impressions Lower Extremity Ultrasound 11/22/16 1333 Signed Impressions: Service Date/Time: Tuesday, November 22, 2016 13:49 - CONCLUSION: Negative exam. No sonographic or Doppler findings of deep venous thrombosis. Fabio Srivastava MD Chest X-Ray 11/22/16 1329 Signed Impressions: Service Date/Time: Tuesday, November 22, 2016 13:43 - CONCLUSION: No acute cardiopulmonary process. Fabio Srivastava MD Sacrum/Coccyx MRI 11/22/16 0000 Signed Impressions: Service Date/Time: Tuesday, November 22, 2016 14:41 - CONCLUSION: Left sacroiliitis. Adjacent bony changes are nonspecific with osteomyelitis not excluded. Alexis Duong MD Maxillofacial CT 11/22/16 0000 Signed Impressions: Service Date/Time: Tuesday, November 22, 2016 14:29 - CONCLUSION: Normal examination. Stevie Miller MD Lumbar Spine MRI 11/22/16 0000 Signed Impressions: Service Date/Time: Tuesday, November 22, 2016 14:41 - CONCLUSION: 1. Scoliotic changes. 2. Minimal disc bulges at L2-3 and L3-4 levels. 3. No canal stenosis. 4. No epidural abscess. Jay Melendrez MD Head CT 11/22/16 0000 Signed Impressions: Service Date/Time: Tuesday, November 22, 2016 14:26 - CONCLUSION: Normal examination. Stevie Miller MD Objective Remarks GENERAL: NAD SKIN: Warm and dry. HEAD: Normocephalic. EYES: No scleral icterus. No injection or drainage. NECK: Supple, trachea midline. No JVD or lymphadenopathy. CARDIOVASCULAR: Regular rate and rhythm without murmurs, gallops, or rubs. RESPIRATORY: Breath sounds equal bilaterally. No accessory muscle use. GASTROINTESTINAL: Abdomen soft, non-tender, nondistended. MUSCULOSKELETAL: No cyanosis, or edema. LLE 4/5 BACK: tender without obvious deformity. No CVA tenderness. A/P Problem List: (1) Sepsis ICD Code: A41.9 Status: Acute (2) Sacroiliitis ICD Code: M46.1 Status: Acute (3) Rhabdomyolysis ICD Code: M62.82 Status: Acute Assessment and Plan 51-year-old man with Severe sepsis:Resolved; source likely (sacroiliitis); status post vancomycin and Zosyn. Continue vancomycin IV pending culture reports Sacroiliitis Sacrum/coccyx MRI with finding of Left sacroiliitis. Adjacent bony changes are nonspecific with osteomyelitis not excluded. Lumbar spine MRI with finding of Scoliotic changes. 2. Minimal disc bulges at L2 -3 and L3-4 levels. 3. No canal stenosis. 4. No epidural abscess. Continue with vancomycin IV and pending consult from infectious disease specialist. Pain management with parenteral IV when necessary and add Baclofen scheduled. Consider consultation to neurosurgery if no improvement. PT consult to treat . Nontraumatic rhabdomyolysis CK trending up Continue Aggressive IV fluid hydration Monitor CK DVT prophylaxis: Bilateral SCDs Problem Qualifiers (1) Sepsis: Qualified Code: A41.9 - Sepsis, due to unspecified organism (2) Rhabdomyolysis: Qualified Code: M62.82 - Non-traumatic rhabdomyolysis Jay Saldana MD November 23, 2016 09:17
[2016-11-23] MEDS: BUDESONIDE-FORMOTEROL 160/4.5 MCG INHALER INH SCH ×2 (09:45→22:04)
[2016-11-23] MEDS: RESP: ALBUTEROL 2.5 MG/IPRATROPIUM 0.5 MG NEB (PRN) NEB ×2 (09:46→16:37)
[2016-11-23] MEDS ORDERED: VANCOMYCIN 1,000 MG/NS 250 ML IV SCH ×2 (11:00)
[2016-11-23] MEDS: VANCOMYCIN INJ 1,250 MG in SODIUM CHLOR 0.9% 250 ML INJ 250 ML IV SCH ×2 (11:28→22:05)
[2016-11-23 12:00] VITALS: BP 114/71; PULSE 89; RESP 16; TEMP 98.2; O2SAT 90
[2016-11-23] MEDS: BACLOFEN 10 MG TAB PO SCH ×2 (14:12→22:05)
--- NOTE | 2016-11-23 14:37 | PD.ID.CON ---
History of Present Illness Service ID Consult Requested By Reason for Consult Evaluation and management of sacroiliitis of infectious etiology. Primary Care Physician No Primary Care Physician Diagnoses: History of Present Illness Mr. Torrez is a 51-year-old male who was brought into the emergency room by emergency medical services for evaluation of worsening low back pain. Patient reports to me that he was recently discharged from [facility] on October 17 after an approximately 18 days stay where he was treated for sepsis, staph aureus bacteremia(does not report being told it was MRSA) and an abscess of the lower back. He was discharged on a 2 month supply of oral Bactrim. Patient recently moved down to [place] visiting his daughter and states that over the past 5 days he has had worsening back pain which he rates as 10 out of 10 in intensity with radiation to mostly left lower extremity. Patient reports tripping and falling down today. He also fell and hit his left shoulder as well as his left knee including the face. EMS was called by his family. On admission he had a temperature of 100, heart rate 140s. Patient met sepsis criteria and workup was initiated. Patient reports he underwent a DARRYL (based on his description) and was told it was negative. Patient reports intermittent myalgia. He occasionally reports night sweats. Patient denies any IV drug abuse. Patient denies any GI complaints such as nausea vomiting diarrhea or constipation. Infectious disease is consulted for evaluation and management of recurrent sepsis and sacroiliitis of infectious etiology for which she was under treatment at another hospital. Review of Systems ROS Limitations: Poor Historian Constitutional: DENIES: Diaphoretic episodes, Fatigue, Fever, Weight gain, Weight loss, Chills, Dizziness, Change in appetite, Night Sweats Endocrine: DENIES: Heat/cold intolerance, Polydipsia, Polyuria, Polyphagia Eyes: DENIES: Blurred vision, Diplopia, Eye inflammation, Eye pain, Vision loss , Photosensitivity, Double Vision Ears, nose, mouth, throat: DENIES: Tinnitus, Hearing loss, Vertigo, Nasal discharge, Oral lesions, Throat pain, Hoarseness, Ear Pain, Running Nose, Epistaxis, Sinus Pain, Toothache, Odynophagia Respiratory: DENIES: Apneas, Cough, Snoring, Wheezing, Hemoptysis, Sputum production, Shortness of breath Cardiovascular: DENIES: Chest pain, Palpitations, Syncope, Dyspnea on Exertion , PND, Lower Extremity Edema, Orthopnea, Claudication Gastrointestinal: DENIES: Abdominal pain, Black stools, Bloody stools, Constipation, Diarrhea, Nausea, Vomiting, Difficulty Swallowing, Anorexia Genitourinary: DENIES: Sexual dysfunction, Urinary frequency, Urinary incontinence, Urgency, Hematuria, Dysuria, Nocturia, Penile Discharge, Testicular Pain, Testicular Swelling Musculoskeletal: COMPLAINS OF: Back pain, DENIES: Joint pain, Muscle aches, Stiffness, Joint Swelling, Neck pain Integumentary: DENIES: Abnormal pigmentation, Nail changes, Pruritus, Rash Hematologic/lymphatic: DENIES: Bruising, Lymphadenopathy Immunologic/allergic: DENIES: Eczema, Urticaria Neurologic: DENIES: Abnormal gait, Headache, Localized weakness, Paresthesias, Seizures, Speech Problems, Tremor, Poor Balance Psychiatric: DENIES: Anxiety, Confusion, Mood changes, Depression, Hallucinations, Agitation, Suicidal Ideation, Homicidal Ideation, Delusions Except as stated in HPI: all other systems reviewed are Neg Past Family Social History Allergies: Coded Allergies: No Known Allergies (Unverified , 11/22/16) Past Medical History Asthma Cardiac problems History of sacroiliitis in September 2016 at the [facility] in [place]. History of being treated with IV antibiotics for 18 days. Past Surgical History DARRYL Reported Medications Reported Meds & Active Scripts Active Protonix (Pantoprazole Sodium) 40 Mg Tab 40 Mg PO DAILY 14 Days Reported Bactrim (Sulfamethoxazole-Trimethoprim) 400-80 Mg Tab 1 Tab PO BID Ventolin Hfa 18 GM Inh (Albuterol Sulfate) 90 Mcg/Act Aer 2 Puff INH Q4-6H PRN Active Ordered Medications Current Medications Medications (Trade) Dose Ordered Sig/[place] Route Start Time Stop Time Status Last Admin (NS 1000 ml Inj) 1,000 ml @ 125 mls/hr Q8H IV 11/22/16 17:24 11/23/16 07:35 (NS Flush) 2 ml UNSCH PRN IV FLUSH 11/22/16 17:30 (NS Flush) 2 ml BID IV FLUSH 11/22/16 21:00 11/23/16 07:35 (Tylenol) 650 mg Q4H PRN PO 11/22/16 17:30 (Zofran Inj) 4 mg Q6H PRN IVP 11/22/16 17:30 (Tylenol) 650 mg Q6H PRN PO 11/22/16 17:30 ([place] 5-325 Mg) 1 tab Q4H PRN PO 11/22/16 17:30 ([place] 7.5-325 Mg) 1 tab Q4H PRN PO 11/22/16 17:30 11/23/16 16:41 (Morphine Inj) 2 mg Q3H PRN IV 11/22/16 17:30 (Narcan Inj) 0.4 mg UNSCH PRN IV 11/22/16 17:30 (Malathi-Colace) 1 tab BID PO 11/22/16 21:00 Enalaprilat 1.25 mg 1.25 mg Q6H PRN IV PUSH 11/22/16 17:30 (Vancomycin Consult Pharmacy) 0 ml @ 0 mls/hr UNSCH OTHER 11/22/16 17:30 (Lioresal) 10 mg Q8HR PO 11/23/16 14:00 11/23/16 14:12 Budesonide/ Formoterol Fumarate 2 puff 2 puff Q12HR INH 11/23/16 09:45 (Vancomycin Inj/ NS 250 ml Inj) 262.5 ml @ 250 mls/hr Q12H IV 11/23/16 11:00 11/23/16 11:28 Miscellaneous Information SPECIFIC LAB TO BE DRAWN:VANCOMYCIN TROUGH DATE TO... ONCE ONCE .XX 11/24/16 22:45 11/24/16 22:46 (Ancef 2 Gm Premix) 50 ml @ 100 mls/hr Q8H IV 11/23/16 17:15 UNV Family History Reviewed and noncontributory to current ID problems. Social History Denies any IV drug abuse. Lives in [place] but is traveling to visit his daughter in the area. Physical Exam Vital Signs Vital Signs Date Time Temp Pulse Resp B/P Pulse Ox O2 Delivery O2 Flow Rate FiO2 11/23/16 12:00 98.2 89 16 114/71 90 11/23/16 08:00 97.0 100 16 131/74 90 11/22/16 22:00 96.4 97 20 112/69 95 11/22/16 18:58 102 18 111/68 96 Room Air 11/22/16 16:56 103 18 117/68 11/22/16 15:15 85 18 115/85 Room Air Physical Exam GENERAL: This is a well-nourished, well-developed patient, in no apparent distress. SKIN: No rashes, ecchymoses or lesions. Cool and dry. HEAD: Atraumatic. Normocephalic. No temporal or scalp tenderness. EYES: Pupils equal round and reactive. Extraocular motions intact. No scleral icterus. No injection or drainage. ENT: Nose without bleeding, purulent drainage or septal hematoma. Throat without erythema, tonsillar hypertrophy or exudate. Uvula midline. Airway patent. NECK: Trachea midline. Supple, nontender, no meningeal signs. CARDIOVASCULAR: Regular rate and rhythm without murmurs, gallops, or rubs. RESPIRATORY: Clear to auscultation. Breath sounds equal bilaterally. No wheezes , rales, or rhonchi. GASTROINTESTINAL: Abdomen soft, non-tender, nondistended. MUSCULOSKELETAL: Extremities without clubbing, cyanosis, or edema. NEUROLOGICAL: Awake and alert. Grossly nonfocal. Psych cooperative IV line sites with no evidence of infection. Laboratory Laboratory Tests Test 11/22/16 11/23/16 11/23/16 18:16 03:45 04:14 Lactic Acid Level 2.8 Urine Opiates Screen NEG Urine Barbiturates Screen NEG Urine Amphetamines Screen NEG Urine Benzodiazepines Screen NEG Urine Cocaine Screen NEG Urine Cannabinoids Screen POS Urine Color LIGHT-YELLOW Urine Turbidity CLEAR Urine pH 6.0 Urine Specific [place] 1.007 Urine Protein TRACE Urine Glucose (UA) NEG Urine Ketones NEG Urine Occult Blood MOD Urine Nitrite NEG Urine Bilirubin NEG Urine Urobilinogen LESS THAN 2.0 Urine Leukocyte Esterase NEG Urine RBC LESS THAN 1 Urine WBC LESS THAN 1 Urine Bacteria RARE Urine Mucus FEW Microscopic Urinalysis Comment CATH-CULTURE IND White Blood Count 5.9 Red Blood Count 4.39 Hemoglobin 12.6 Hematocrit 37.8 Mean Corpuscular Volume 86.1 Mean Corpuscular Hemoglobin 28.7 Mean Corpuscular Hemoglobin 33.4 Concent Red Cell Distribution Width 14.2 Platelet Count 114 Mean Platelet Volume 9.1 Neutrophils (%) (Auto) 62.0 Lymphocytes (%) (Auto) 26.0 Monocytes (%) (Auto) 7.1 Eosinophils (%) (Auto) 4.2 Basophils (%) (Auto) 0.7 Neutrophils # (Auto) 3.7 Lymphocytes # (Auto) 1.5 Monocytes # (Auto) 0.4 Eosinophils # (Auto) 0.2 Basophils # (Auto) 0.0 CBC Comment DIFF FINAL Differential Comment Sodium Level 142 Potassium Level 3.9 Chloride Level 108 Carbon Dioxide Level 28.0 Anion Gap 6 Blood Urea Nitrogen 7 Creatinine 0.49 Estimat Glomerular Filtration 179 Rate Random Glucose 84 Calcium Level 7.9 Total Bilirubin 0.4 Aspartate Amino Transf 399 (AST/SGOT) Alanine Aminotransferase 68 (ALT/SGPT) Alkaline Phosphatase 76 Total Creatine Kinase 93760 Creatine Kinase MB 54.0 Creatine Kinase MB % 0.2 Total Protein 5.1 Albumin 2.3 Date/Time Procedure Status Source Growth 11/23/16 03:45 Urine Culture Received Urine Catheterized Urine Pending 11/22/16 13:40 Aerobic Blood Culture - Preliminary Resulted Blood Peripheral NO GROWTH IN 1 DAY 11/22/16 13:40 Anaerobic Blood Culture - Preliminary Resulted Blood Peripheral NO GROWTH IN 1 DAY Result Diagram: 11/23/16 0414 11/23/16 0414 Imaging Last Impressions Lower Extremity Ultrasound 11/22/16 1333 Signed Impressions: Service Date/Time: Tuesday, November 22, 2016 13:49 - CONCLUSION: Negative exam. No sonographic or Doppler findings of deep venous thrombosis. Fabio Srivastava MD Chest X-Ray 11/22/16 1329 Signed Impressions: Service Date/Time: Tuesday, November 22, 2016 13:43 - CONCLUSION: No acute cardiopulmonary process. Fabio Srivastava MD Sacrum/Coccyx MRI 11/22/16 0000 Signed Impressions: Service Date/Time: Tuesday, November 22, 2016 14:41 - CONCLUSION: Left sacroiliitis. Adjacent bony changes are nonspecific with osteomyelitis not excluded. Alexis Duong MD Maxillofacial CT 11/22/16 0000 Signed Impressions: Service Date/Time: Tuesday, November 22, 2016 14:29 - CONCLUSION: Normal examination. Stevie Miller MD Lumbar Spine MRI 11/22/16 0000 Signed Impressions: Service Date/Time: Tuesday, November 22, 2016 14:41 - CONCLUSION: 1. Scoliotic changes. 2. Minimal disc bulges at L2-3 and L3-4 levels. 3. No canal stenosis. 4. No epidural abscess. Jay Melendrez MD Head CT 11/22/16 0000 Signed Impressions: Service Date/Time: Tuesday, November 22, 2016 14:26 - CONCLUSION: Normal examination. Stevie Miller MD Assessment and Plan Assessment and Plan Left-sided sacroiliitis likely of infectious etiology. Patient reports he thinks he had a staph infection does not think he was told MRSA in the past. Asthma by history Recs: Continue Vanco IV Start Ancef IV Request medical records from [place]. If [place] records shows he had MSSA in left sacroilitis cultures or MSSA in blood then we can think of Ancef or Ceftriaxone IV as DC regimen. 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 elda Hoffmann in CM dept. I will be OOT from 11/24/16 to 11/29/2016. Other ID MDs covering for me. Please call center. Sandy Rincon MD November 23, 2016 14:37
[2016-11-23 16:00] VITALS: BP 126/65; PULSE 98; RESP 16; TEMP 98; O2SAT 90
--- NOTE | 2016-11-23 17:36 | EKG ---
Date Performed: 11/22/2016 Time Performed: 13:38:21 PTAGE: 51 years EKG: SINUS TACHYCARDIA ABNORMAL RHYTHM ECG PREVIOUS TRACING : 10/20/2016 01.34 Compared to the previous tracing, rate has increased DOCTOR: Kenny Deng Interpretating Date/Time 11/23/2016 17:36:23
[2016-11-23] MEDS: ceFAZolin 2 GM PREMIX 50 ML IV SCH (18:01)
[2016-11-23 20:00] VITALS: BP 115/80; PULSE 100; RESP 20; TEMP 97.9; O2SAT 92
[2016-11-24] VITALS: BP 140/85; PULSE 98; RESP 20; TEMP 97.2; O2SAT 92
[2016-11-24] MEDS: ceFAZolin 2 GM PREMIX 50 ML IV SCH ×3 (02:32→17:33)
[2016-11-24 05:49] LABS: CKMB 17.4 NG/ML (0.5-3.6)
[2016-11-24] MEDS: BACLOFEN 10 MG TAB PO SCH ×3 (06:35→22:22)
[2016-11-24] MEDS: ACETAMINOPHEN/HYDROcodone 325 MG/7.5 MG TAB PO PRN ×5 (06:36→19:27)
[2016-11-24 08:00] VITALS: BP 119/83; PULSE 96; RESP 16; TEMP 97.1; O2SAT 94
[2016-11-24] MEDS: DOCUSATE SODIUM 50 MG/SENNA 8.6 MG TAB PO SCH ×2 (09:00→21:00)
[2016-11-24] MEDS: SODIUM CHLORIDE 0.9% FLUSH 10 ML FLUSH IV FLUSH SCH ×2 (09:00→22:23)
[2016-11-24] MEDS: BUDESONIDE-FORMOTEROL 160/4.5 MCG INHALER INH SCH ×2 (09:20→22:21)
[2016-11-24] MEDS: SODIUM CHLOR 0.9% 1000 ML INJ 1,000 ML IV SCH ×2 (09:30→17:33)
--- NOTE | 2016-11-24 10:06 | HHI.PR ---
Subjective Remarks Follow-up sacroiliitis/severe sepsis 11/23/16-patient seen and examined; complains of low back pain. Currently afebrile. 11/24/16-patient seen and examined, currently on both Ancef and vancomycin. Afebrile. Still complains of left-sided low back pain Objective Vitals Vital Signs Date Time Temp Pulse Resp B/P Pulse Ox O2 Delivery O2 Flow Rate FiO2 11/24/16 08:00 97.1 96 16 119/83 94 11/24/16 00:00 97.2 98 20 140/85 92 11/23/16 20:00 97.9 100 20 115/80 92 11/23/16 16:00 98.0 98 16 126/65 90 11/23/16 12:00 98.2 89 16 114/71 90 I/O 11/23/16 11/23/16 11/23/16 11/24/16 11/24/16 11/24/16 07:00 15:00 23:00 07:00 15:00 23:00 Intake Total 1108 ml 1650 ml 1251 ml 881 ml Output Total 1000 ml 750 ml 125 ml Balance 108 ml 900 ml 1126 ml 881 ml Intake Oral 120 ml 650 ml 480 ml 240 ml IV Total 988 ml 1000 ml 771 ml 641 ml Output Urine Total 1000 ml 750 ml 125 ml # Voids 3 # Bowel Movements 0 0 0 Result Diagram: 11/23/16 0414 11/23/16 0414 Objective Remarks GENERAL: NAD SKIN: Warm and dry. HEAD: Normocephalic. EYES: No scleral icterus. No injection or drainage. NECK: Supple, trachea midline. No JVD or lymphadenopathy. CARDIOVASCULAR: Regular rate and rhythm without murmurs, gallops, or rubs. RESPIRATORY: Breath sounds equal bilaterally. No accessory muscle use. GASTROINTESTINAL: Abdomen soft, non-tender, nondistended. MUSCULOSKELETAL: No cyanosis, or edema. LLE 4/5 BACK: tender without obvious deformity. No CVA tenderness. A/P Problem List: (1) Sepsis ICD Code: A41.9 Status: Acute (2) Sacroiliitis ICD Code: M46.1 Status: Acute (3) Rhabdomyolysis ICD Code: M62.82 Status: Acute Assessment and Plan 51-year-old man with Severe sepsis:Resolved; source likely (sacroiliitis); status post vancomycin and Zosyn. Continue vancomycin IV pending culture reports Sacroiliitis -Sacrum/coccyx MRI with finding of Left sacroiliitis. Adjacent bony changes are nonspecific with osteomyelitis not excluded. -Lumbar spine MRI with finding of Scoliotic changes. 2. Minimal disc bulges at L2-3 and L3-4 levels. 3. No canal stenosis. 4. No epidural abscess. -Continue with vancomycin IV and Ancef per infectious disease specialist, pending culture report -Pain management with parenteral IV when necessary and Baclofen scheduled. -Consider consultation to neurosurgery if no improvement. -PT consult to treat . Nontraumatic rhabdomyolysis CK trending down Continue Aggressive IV fluid hydration Monitor CK DVT prophylaxis: Bilateral SCDs Problem Qualifiers (1) Sepsis: Qualified Code: A41.9 - Sepsis, due to unspecified organism (2) Rhabdomyolysis: Qualified Code: M62.82 - Non-traumatic rhabdomyolysis Jay Saldana MD November 24, 2016 10:06
[2016-11-24] MEDS: VANCOMYCIN INJ 1,250 MG in SODIUM CHLOR 0.9% 250 ML INJ 250 ML IV SCH (10:28)
[2016-11-24 12:00] VITALS: BP 130/85; PULSE 109; RESP 14; TEMP 96.9; O2SAT 95
--- NOTE | 2016-11-24 13:21 | HHI.IDPN ---
Subjective Subjective Remarks Mr. Torrez is a 51-year-old male who was brought into the emergency room by emergency medical services for evaluation of worsening low back pain. Patient reports to me that he was recently discharged from [facility] on October 17 after an approximately 18 days stay where he was treated for sepsis, staph aureus bacteremia(does not report being told it was MRSA) and an abscess of the lower back. He was discharged on a 2 month supply of oral Bactrim. Patient recently moved down to [place] visiting his daughter and states that over the past 5 days he has had worsening back pain which he rates as 10 out of 10 in intensity with radiation to mostly left lower extremity. Patient reports tripping and falling down today. He also fell and hit his left shoulder as well as his left knee including the face. EMS was called by his family. On admission he had a temperature of 100, heart rate 140s. Patient met sepsis criteria and workup was initiated. Patient reports he underwent a DARRYL (based on his description) and was told it was negative. Notes reviewed Temps better Back pain bad when he tries to move or get up Radiology studies reviewed No N/V Voiding ok C/O itching where he had leads/tape No diarrhea One BC with pleomorphic GPR Second BC with GPC UC negative LFT ok Antibiotics Ancef Vancomycin Lines PIV Past Medical History Asthma Cardiac problems History of sacroiliitis in September 2016 at the hospital in [place]. History of being treated with IV antibiotics for 18 days. Allergies: Coded Allergies: No Known Allergies (Unverified , 11/22/16) Objective . Vital Signs Date Time Temp Pulse Resp B/P Pulse Ox O2 Delivery O2 Flow Rate FiO2 11/24/16 08:00 97.1 96 16 119/83 94 11/24/16 00:00 97.2 98 20 140/85 92 11/23/16 20:00 97.9 100 20 115/80 92 11/23/16 16:00 98.0 98 16 126/65 90 11/23/16 11/23/16 11/24/16 15:00 23:00 07:00 Intake Total 1650 ml 1251 ml 881 ml Output Total 750 ml 125 ml Balance 900 ml 1126 ml 881 ml Intake Oral 650 ml 480 ml 240 ml IV Total 1000 ml 771 ml 641 ml Output Urine Total 750 ml 125 ml # Voids 3 # Bowel Movements 0 0 . Laboratory Tests Test 11/22/16 11/23/16 13:40 04:14 White Blood Count 11.0 TH/MM3 5.9 TH/MM3 Red Blood Count 4.43 MIL/MM3 4.39 MIL/MM3 Hemoglobin 12.8 GM/DL 12.6 GM/DL Hematocrit 37.5 % 37.8 % Mean Corpuscular Volume 84.8 FL 86.1 FL Mean Corpuscular Hemoglobin 28.9 PG 28.7 PG Mean Corpuscular Hemoglobin 34.1 % 33.4 % Concent Red Cell Distribution Width 14.3 % 14.2 % Platelet Count 151 TH/MM3 114 TH/MM3 Mean Platelet Volume 8.4 FL 9.1 FL Neutrophils (%) (Auto) 89.8 % 62.0 % Lymphocytes (%) (Auto) 4.7 % 26.0 % Monocytes (%) (Auto) 5.0 % 7.1 % Eosinophils (%) (Auto) 0.4 % 4.2 % Basophils (%) (Auto) 0.1 % 0.7 % Neutrophils # (Auto) 9.9 TH/MM3 3.7 TH/MM3 Lymphocytes # (Auto) 0.5 TH/MM3 1.5 TH/MM3 Monocytes # (Auto) 0.6 TH/MM3 0.4 TH/MM3 Eosinophils # (Auto) 0.0 TH/MM3 0.2 TH/MM3 Basophils # (Auto) 0.0 TH/MM3 0.0 TH/MM3 CBC Comment DIFF FINAL DIFF FINAL Differential Comment Laboratory Tests Test 11/22/16 11/22/16 11/23/16 11/24/16 13:40 18:16 04:14 03:54 Sodium Level 137 MEQ/L 142 MEQ/L Potassium Level 3.5 MEQ/L 3.9 MEQ/L Chloride Level 101 MEQ/L 108 MEQ/L Carbon Dioxide Level 24.1 MEQ/L 28.0 MEQ/L Anion Gap 12 MEQ/L 6 MEQ/L Blood Urea Nitrogen 13 MG/DL 7 MG/DL Creatinine 1.18 MG/DL 0.49 MG/DL Estimat Glomerular Filtration 65 ML/MIN 179 ML/MIN Rate Random Glucose 131 MG/DL 84 MG/DL Lactic Acid Level 5.8 mmol/L 2.8 mmol/L Calcium Level 8.6 MG/DL 7.9 MG/DL Magnesium Level 2.5 MG/DL Total Bilirubin 0.6 MG/DL 0.4 MG/DL Aspartate Amino Transf 188 U/L 399 U/L (AST/SGOT) Alanine Aminotransferase 51 U/L 68 U/L (ALT/SGPT) Alkaline Phosphatase 94 U/L 76 U/L Total Creatine Kinase 9636 U/L 13205 U/L 90013 U/L Creatine Kinase MB 38.5 NG/ML 54.0 NG/ML 17.4 NG/ML Creatine Kinase MB % 0.4 % 0.2 % 0.1 % Total Protein 5.8 GM/DL 5.1 GM/DL Albumin 2.8 GM/DL 2.3 GM/DL Microbiology Date/Time Procedure Status Source Growth 11/22/16 13:40 Aerobic Blood Culture - Preliminary Resulted Blood Peripheral Pleomorphic Gram Positive Rods 11/22/16 13:40 Anaerobic Blood Culture - Preliminary Resulted Blood Peripheral NO GROWTH IN 2 DAYS 11/22/16 13:40 Aerobic Blood Culture - Preliminary Resulted Blood Peripheral NO GROWTH IN 2 DAYS 11/22/16 13:40 Anaerobic Blood Culture - Preliminary Resulted Gram Positive Cocci 11/23/16 03:45 Urine Culture - Preliminary Resulted Urine Catheterized Urine NO GROWTH IN 24 HOURS. Imaging Last Impressions Lower Extremity Ultrasound 11/22/16 1333 Signed Impressions: Service Date/Time: Tuesday, November 22, 2016 13:49 - CONCLUSION: Negative exam. No sonographic or Doppler findings of deep venous thrombosis. Fabio Srivastava MD Chest X-Ray 11/22/16 1329 Signed Impressions: Service Date/Time: Tuesday, November 22, 2016 13:43 - CONCLUSION: No acute cardiopulmonary process. Fabio Srivastava MD Sacrum/Coccyx MRI 11/22/16 0000 Signed Impressions: Service Date/Time: Tuesday, November 22, 2016 14:41 - CONCLUSION: Left sacroiliitis. Adjacent bony changes are nonspecific with osteomyelitis not excluded. Alexis Duong MD Maxillofacial CT 11/22/16 0000 Signed Impressions: Service Date/Time: Tuesday, November 22, 2016 14:29 - CONCLUSION: Normal examination. Stevie Miller MD Lumbar Spine MRI 11/22/16 0000 Signed Impressions: Service Date/Time: Tuesday, November 22, 2016 14:41 - CONCLUSION: 1. Scoliotic changes. 2. Minimal disc bulges at L2-3 and L3-4 levels. 3. No canal stenosis. 4. No epidural abscess. Jay Melendrez MD Head CT 11/22/16 0000 Signed Impressions: Service Date/Time: Tuesday, November 22, 2016 14:26 - CONCLUSION: Normal examination. Stevie Miller MD Physical Exam GENERAL: This is a well-nourished, well-developed patient, in no apparent distress. SKIN: Warm and moist, no rasg, has redness on R side of his abdomen where he was scratching, no embolic lesions HEAD: Atraumatic. Normocephalic. No temporal or scalp tenderness. EYES: Pupils equal round and reactive. Extraocular motions intact. No scleral icterus. No injection or drainage. ENT: Nose without bleeding, purulent drainage or septal hematoma. Throat without erythema, tonsillar hypertrophy or exudate. NECK: Trachea midline. Supple, nontender, no meningeal signs. CARDIOVASCULAR: Regular rate and rhythm without murmurs, gallops, or rubs. RESPIRATORY: Clear to auscultation. Breath sounds equal bilaterally. No wheezes , rales, or rhonchi. GASTROINTESTINAL: Abdomen soft, non-tender, nondistended. MUSCULOSKELETAL: Extremities without clubbing, cyanosis, or edema. NEUROLOGICAL: Awake and alert. Grossly nonfocal. Psych cooperative IV line sites with no evidence of infection. Assessment & Plan Remarks Sepsis on presentation - has (+) BC Left-sided sacroiliitis likely of infectious etiology. Patient reports he thinks he had a staph infection does not think he was told MRSA in the past. Asthma by history Recs: Continue Vanco IV Continue Ancef IV Request medical records from [place]. If [place] records shows he had MSSA in left sacroilitis cultures or MSSA in blood then we can think of Ancef or Ceftriaxone IV as DC regimen. If [place] records show he had MRSA in left sacroilitis cultures or MSSA in blood then we can think of Vanco IV ( in home setting) or Telavancin IV ( in clinic setting) Repeat BC ESR and CRP Follow C/S Monitor progress Dr Jovanny Chris covering 11/25-11/27 Yahaira Carbajal MD November 24, 2016 13:21
[2016-11-24 16:00] VITALS: BP 128/89; PULSE 93; RESP 16; TEMP 96.2; O2SAT 92
[2016-11-24 20:00] VITALS: BP 119/86; PULSE 93; RESP 20; TEMP 98.6; O2SAT 92
[2016-11-24] MEDS ORDERED: PHARMACY ORDERED LAB ONE ×2 (22:45)
[2016-11-25] VITALS: BP 120/72; PULSE 94; RESP 20; TEMP 97.3; O2SAT 94
[2016-11-25] MEDS: ACETAMINOPHEN/HYDROcodone 325 MG/7.5 MG TAB PO PRN ×5 (00:33→22:00)
[2016-11-25] MEDS: VANCOMYCIN INJ 1,250 MG in SODIUM CHLOR 0.9% 250 ML INJ 250 ML IV SCH ×2 (00:33→11:53)
[2016-11-25] MEDS: ceFAZolin 2 GM PREMIX 50 ML IV SCH ×3 (00:33→16:23)
[2016-11-25] MEDS: SODIUM CHLOR 0.9% 1000 ML INJ 1,000 ML IV SCH ×3 (00:35→16:23)
[2016-11-25] MEDS: BACLOFEN 10 MG TAB PO SCH ×3 (06:20→21:43)
[2016-11-25] MEDS: DOCUSATE SODIUM 50 MG/SENNA 8.6 MG TAB PO SCH ×2 (07:48→21:00)
[2016-11-25] MEDS: SODIUM CHLORIDE 0.9% FLUSH 10 ML FLUSH IV FLUSH SCH ×2 (07:51→21:00)
[2016-11-25] MEDS: BUDESONIDE-FORMOTEROL 160/4.5 MCG INHALER INH SCH ×2 (07:51→21:42)
[2016-11-25 07:55] LABS: CKMB 13.7 NG/ML (0.5-3.6)
[2016-11-25 08:00] VITALS: BP 135/82; PULSE 77; RESP 18; TEMP 97.5; O2SAT 94
--- NOTE | 2016-11-25 09:46 | HHI.PR ---
Subjective Remarks Follow-up sacroiliitis/severe sepsis 11/23/16-patient seen and examined; complains of low back pain. Currently afebrile. 11/24/16-patient seen and examined, currently on both Ancef and vancomycin. Afebrile. Still complains of left-sided low back pain 11/25/16-patient seen and examined, per nurse report he had episode of confusion and agitation overnight otherwise this morning patient is alert and oriented 3. Currently afebrile Objective Vitals Vital Signs Date Time Temp Pulse Resp B/P Pulse Ox O2 Delivery O2 Flow Rate FiO2 11/25/16 08:00 97.5 77 18 135/82 94 11/25/16 01:33 18 11/25/16 00:00 97.3 94 20 120/72 94 11/24/16 20:00 98.6 93 20 119/86 92 11/24/16 16:00 96.2 93 16 128/89 92 11/24/16 12:00 96.9 109 14 130/85 95 I/O 11/24/16 11/24/16 11/24/16 11/25/16 11/25/16 11/25/16 07:00 15:00 23:00 07:00 15:00 23:00 Intake Total 881 ml 860 ml 730 ml 360 ml Output Total 700 ml Balance 881 ml 860 ml 730 ml -340 ml Intake Oral 240 ml 860 ml 480 ml 360 ml IV Total 641 ml 250 ml Output Urine Total 700 ml # Voids 3 4 4 # Bowel Movements 0 2 0 0 Result Diagram: 11/23/16 0414 11/23/16 0414 Objective Remarks GENERAL: NAD SKIN: Warm and dry. HEAD: Normocephalic. EYES: No scleral icterus. No injection or drainage. NECK: Supple, trachea midline. No JVD or lymphadenopathy. CARDIOVASCULAR: Regular rate and rhythm without murmurs, gallops, or rubs. RESPIRATORY: Breath sounds equal bilaterally. No accessory muscle use. GASTROINTESTINAL: Abdomen soft, non-tender, nondistended. MUSCULOSKELETAL: No cyanosis, or edema. LLE 4/5 BACK: tender without obvious deformity. No CVA tenderness. A/P Problem List: (1) Sepsis ICD Code: A41.9 Status: Acute (2) Sacroiliitis ICD Code: M46.1 Status: Acute (3) Rhabdomyolysis ICD Code: M62.82 Status: Acute Assessment and Plan 51-year-old man with Severe sepsis:Resolved; source likely (sacroiliitis); status post vancomycin and Zosyn. Continue vancomycin IV pending culture reports Sacroiliitis Bacteremia -Sacrum/coccyx MRI with finding of Left sacroiliitis. Adjacent bony changes are nonspecific with osteomyelitis not excluded. -Lumbar spine MRI with finding of Scoliotic changes. 2. Minimal disc bulges at L2-3 and L3-4 levels. 3. No canal stenosis. 4. No epidural abscess. -Continue with vancomycin IV and Ancef per infectious disease specialist -Repeat blood culture pending -Pain management with parenteral IV when necessary and Baclofen scheduled. -PT to treat . -Awaiting for medical record from [facility] Nontraumatic rhabdomyolysis CK trending down Continue Aggressive IV fluid hydration Monitor CK DVT prophylaxis: Bilateral SCDs Problem Qualifiers (1) Sepsis: Qualified Code: A41.9 - Sepsis, due to unspecified organism (2) Rhabdomyolysis: Qualified Code: M62.82 - Non-traumatic rhabdomyolysis Jay Saldana MD November 25, 2016 09:46
[2016-11-25 12:00] VITALS: BP 131/77; PULSE 92; RESP 22; TEMP 95.1; O2SAT 94
[2016-11-25 16:00] VITALS: BP 126/89; PULSE 84; RESP 16; TEMP 97.4; O2SAT 96
[2016-11-25 20:00] VITALS: BP 125/83; PULSE 97; RESP 18; TEMP 96.5; O2SAT 97
[2016-11-25] MEDS: VANCOMYCIN 1,500 MG/NS 500 ML IV SCH ×2 (21:43)
[2016-11-26 00:25] VITALS: BP 123/66; PULSE 83; RESP 18; TEMP 96.7; O2SAT 96
[2016-11-26] MEDS: SODIUM CHLOR 0.9% 1000 ML INJ 1,000 ML IV SCH ×3 (02:51→16:39)
[2016-11-26] MEDS: ceFAZolin 2 GM PREMIX 50 ML IV SCH ×3 (02:51→16:39)
[2016-11-26 06:41] LABS: CKMB 19.6 NG/ML (0.5-3.6)
[2016-11-26] MEDS: BACLOFEN 10 MG TAB PO SCH (06:45)
[2016-11-26] MEDS: DOCUSATE SODIUM 50 MG/SENNA 8.6 MG TAB PO SCH ×2 (07:11→21:00)
[2016-11-26] MEDS: SODIUM CHLORIDE 0.9% FLUSH 10 ML FLUSH IV FLUSH SCH ×2 (07:17→21:00)
[2016-11-26] MEDS: VANCOMYCIN 1,500 MG/NS 500 ML IV SCH ×4 (07:19→22:53)
[2016-11-26] MEDS: BUDESONIDE-FORMOTEROL 160/4.5 MCG INHALER INH SCH ×2 (07:19→22:54)
[2016-11-26 08:00] VITALS: BP 128/72; PULSE 82; RESP 19; TEMP 97.2; O2SAT 96
--- NOTE | 2016-11-26 11:49 | HHI.PR ---
Subjective Remarks Follow-up sacroiliitis/severe sepsis 11/23/16-patient seen and examined; complains of low back pain. Currently afebrile. 11/24/16-patient seen and examined, currently on both Ancef and vancomycin. Afebrile. Still complains of left-sided low back pain 11/25/16-patient seen and examined, per nurse report he had episode of confusion and agitation overnight otherwise this morning patient is alert and oriented 3. Currently afebrile 11/26/16-patient seen and examined, alert and appears confused. Patient not giving much of an answer for any question asked Objective Vitals Vital Signs Date Time Temp Pulse Resp B/P Pulse Ox O2 Delivery O2 Flow Rate FiO2 11/26/16 08:00 97.2 82 19 128/72 96 11/26/16 00:25 96.7 83 18 123/66 96 11/25/16 20:00 96.5 97 18 125/83 97 11/25/16 16:00 97.4 84 16 126/89 96 11/25/16 12:00 95.1 92 22 131/77 94 I/O 11/25/16 11/25/16 11/25/16 11/26/16 11/26/16 11/26/16 07:00 15:00 23:00 07:00 15:00 23:00 Intake Total 360 ml 1091 ml 380 ml 1150 ml Output Total 700 ml Balance -340 ml 1091 ml 380 ml 1150 ml Intake Oral 360 ml 720 ml 380 ml 480 ml IV Total 371 ml 670 ml Output Urine Total 700 ml # Voids 5 2 3 # Bowel Movements 0 1 Result Diagram: 11/23/16 0414 11/26/16 0504 Objective Remarks GENERAL: NAD SKIN: Warm and dry. HEAD: Normocephalic. EYES: No scleral icterus. No injection or drainage. NECK: Supple, trachea midline. No JVD or lymphadenopathy. CARDIOVASCULAR: Regular rate and rhythm without murmurs, gallops, or rubs. RESPIRATORY: Breath sounds equal bilaterally. No accessory muscle use. GASTROINTESTINAL: Abdomen soft, non-tender, nondistended. MUSCULOSKELETAL: No cyanosis, or edema. LLE 4/5 BACK: tender without obvious deformity. No CVA tenderness. A/P Problem List: (1) Sepsis ICD Code: A41.9 Status: Acute (2) Sacroiliitis ICD Code: M46.1 Status: Acute (3) Rhabdomyolysis ICD Code: M62.82 Status: Acute Assessment and Plan 51-year-old man with Severe sepsis:Resolved; source likely (sacroiliitis); status post vancomycin and Zosyn. Continue vancomycin IV pending culture reports Sacroiliitis Bacteremia -Sacrum/coccyx MRI with finding of Left sacroiliitis. Adjacent bony changes are nonspecific with osteomyelitis not excluded. -Lumbar spine MRI with finding of Scoliotic changes. 2. Minimal disc bulges at L2-3 and L3-4 levels. 3. No canal stenosis. 4. No epidural abscess. -Continue with vancomycin IV and Ancef per infectious disease specialist -Repeat blood culture NTD -Pain management with parenteral IV when necessary and Baclofen scheduled. -PT to treat . -Awaiting for medical record from [facility] Nontraumatic rhabdomyolysis CK trending down Continue Aggressive IV fluid hydration Monitor CK DVT prophylaxis: Bilateral SCDs Problem Qualifiers (1) Sepsis: Qualified Code: A41.9 - Sepsis, due to unspecified organism (2) Rhabdomyolysis: Qualified Code: M62.82 - Non-traumatic rhabdomyolysis Jay Saldana MD November 26, 2016 11:49
[2016-11-26 12:00] VITALS: BP 124/79; PULSE 85; RESP 19; TEMP 97.1; O2SAT 94
[2016-11-26] MEDS ORDERED: BACLOFEN 10 MG TAB PO PRN (12:00)
[2016-11-26 16:00] VITALS: BP 133/77; PULSE 85; RESP 19; TEMP 96.7; O2SAT 96
[2016-11-26] MEDS ORDERED: ZIPRASIDONE MESYLATE 20 MG VIAL IM ONE (16:45)
[2016-11-26 20:00] VITALS: BP 136/76; PULSE 80; RESP 18; TEMP 96.9; O2SAT 98
[2016-11-27] MEDS: SODIUM CHLOR 0.9% 1000 ML INJ 1,000 ML IV SCH ×3 (01:52→17:46)
[2016-11-27] MEDS: ceFAZolin 2 GM PREMIX 50 ML IV SCH ×3 (02:44→17:46)
[2016-11-27 07:51] LABS: CKMB 9.7 NG/ML (0.5-3.6)
[2016-11-27 08:00] VITALS: BP 126/80; PULSE 96; RESP 18; TEMP 98; O2SAT 97
[2016-11-27] MEDS ORDERED: PHARMACY ORDERED LAB ONE (08:45)
[2016-11-27] MEDS: SODIUM CHLORIDE 0.9% FLUSH 10 ML FLUSH IV FLUSH SCH ×3 (09:36→21:00)
[2016-11-27] MEDS: DOCUSATE SODIUM 50 MG/SENNA 8.6 MG TAB PO SCH ×2 (09:36→21:00)
[2016-11-27] MEDS: BUDESONIDE-FORMOTEROL 160/4.5 MCG INHALER INH SCH ×2 (09:36→21:31)
[2016-11-27] MEDS: VANCOMYCIN 1,500 MG/NS 500 ML IV SCH ×2 (10:31)
--- NOTE | 2016-11-27 11:10 | HHI.PR ---
Subjective Remarks Follow-up sacroiliitis/severe sepsis 11/23/16-patient seen and examined; complains of low back pain. Currently afebrile. 11/24/16-patient seen and examined, currently on both Ancef and vancomycin. Afebrile. Still complains of left-sided low back pain 11/25/16-patient seen and examined, per nurse report he had episode of confusion and agitation overnight otherwise this morning patient is alert and oriented 3. Currently afebrile 11/26/16-patient seen and examined, alert and appears confused. Patient not giving much of an answer for any question asked 11/27/16-patient seen and examined. Appears alert and oriented and not as confused as yesterday. Objective Vitals Vital Signs Date Time Temp Pulse Resp B/P Pulse Ox O2 Delivery O2 Flow Rate FiO2 11/27/16 08:00 98.0 96 18 126/80 97 11/26/16 20:00 96.9 80 18 136/76 98 11/26/16 16:00 96.7 85 19 133/77 96 11/26/16 12:00 97.1 85 19 124/79 94 I/O 11/26/16 11/26/16 11/26/16 11/27/16 11/27/16 11/27/16 07:00 15:00 23:00 07:00 15:00 23:00 Intake Total 1150 ml 2377 ml 1407 ml 1244 ml Balance 1150 ml 2377 ml 1407 ml 1244 ml Intake Oral 480 ml 1064 ml 480 ml 360 ml IV Total 670 ml 1313 ml 927 ml 884 ml # Voids 3 2 2 3 # Bowel Movements 0 Result Diagram: 11/23/16 0414 11/26/16 0504 Objective Remarks GENERAL: NAD SKIN: Warm and dry. HEAD: Normocephalic. EYES: No scleral icterus. No injection or drainage. NECK: Supple, trachea midline. No JVD or lymphadenopathy. CARDIOVASCULAR: Regular rate and rhythm without murmurs, gallops, or rubs. RESPIRATORY: Breath sounds equal bilaterally. No accessory muscle use. GASTROINTESTINAL: Abdomen soft, non-tender, nondistended. MUSCULOSKELETAL: No cyanosis, or edema. LLE 4/5 BACK: tender without obvious deformity. No CVA tenderness. A/P Problem List: (1) Sepsis ICD Code: A41.9 Status: Acute (2) Sacroiliitis ICD Code: M46.1 Status: Acute (3) Rhabdomyolysis ICD Code: M62.82 Status: Acute Assessment and Plan 51-year-old man with Severe sepsis:Resolved; source likely (sacroiliitis); status post vancomycin and Zosyn. Continue vancomycin IV pending culture reports Sacroiliitis Bacteremia -Sacrum/coccyx MRI with finding of Left sacroiliitis. Adjacent bony changes are nonspecific with osteomyelitis not excluded. -Lumbar spine MRI with finding of Scoliotic changes. 2. Minimal disc bulges at L2-3 and L3-4 levels. 3. No canal stenosis. 4. No epidural abscess. -Continue with vancomycin IV and Ancef per infectious disease specialist -Repeat blood culture NTD -Pain management with parenteral IV when necessary and Baclofen scheduled. -PT to treat . -Awaiting for medical record from hospital visit from [facility] Nontraumatic rhabdomyolysis CK significantly trending down Continue Aggressive IV fluid hydration Monitor CK DVT prophylaxis: Bilateral SCDs Problem Qualifiers (1) Sepsis: Qualified Code: A41.9 - Sepsis, due to unspecified organism (2) Rhabdomyolysis: Qualified Code: M62.82 - Non-traumatic rhabdomyolysis Jay Saldana MD November 27, 2016 11:10
[2016-11-27 12:00] VITALS: BP 137/87; PULSE 90; RESP 18; TEMP 96.7; O2SAT 96
[2016-11-27] MEDS: ACETAMINOPHEN/HYDROcodone 325 MG/7.5 MG TAB PO PRN ×3 (14:25→23:36)
[2016-11-27 16:00] VITALS: BP 119/80; PULSE 78; RESP 18; TEMP 95.6; O2SAT 98
[2016-11-27 20:00] VITALS: BP 119/74; PULSE 73; RESP 17; TEMP 96; O2SAT 97
[2016-11-27] MEDS: VANCOMYCIN 1,000 MG/NS 250 ML IV SCH ×2 (21:30)
[2016-11-28] VITALS: BP 124/76; PULSE 77; RESP 17; TEMP 96.1; O2SAT 97
[2016-11-28] MEDS: ceFAZolin 2 GM PREMIX 50 ML IV SCH ×2 (02:02→08:10)
[2016-11-28] MEDS: SODIUM CHLOR 0.9% 1000 ML INJ 1,000 ML IV SCH ×2 (02:02→08:11)
[2016-11-28] MEDS: ACETAMINOPHEN/HYDROcodone 325 MG/7.5 MG TAB PO PRN ×3 (03:56→12:15)
[2016-11-28] MEDS: VANCOMYCIN 1,000 MG/NS 250 ML IV SCH ×4 (03:58→12:15)
[2016-11-28 08:00] VITALS: BP 114/75; PULSE 63; RESP 14; TEMP 96.3; O2SAT 97
[2016-11-28] MEDS: DOCUSATE SODIUM 50 MG/SENNA 8.6 MG TAB PO SCH (08:10)
[2016-11-28] MEDS: SODIUM CHLORIDE 0.9% FLUSH 10 ML FLUSH IV FLUSH SCH (08:11)
[2016-11-28] MEDS: BUDESONIDE-FORMOTEROL 160/4.5 MCG INHALER INH SCH (08:11)
--- NOTE | 2016-11-28 11:21 | HHI.PR ---
Subjective Remarks Follow-up sacroiliitis/severe sepsis 11/23/16-patient seen and examined; complains of low back pain. Currently afebrile. 11/24/16-patient seen and examined, currently on both Ancef and vancomycin. Afebrile. Still complains of left-sided low back pain 11/25/16-patient seen and examined, per nurse report he had episode of confusion and agitation overnight otherwise this morning patient is alert and oriented 3. Currently afebrile 11/26/16-patient seen and examined, alert and appears confused. Patient not giving much of an answer for any question asked 11/27/16-patient seen and examined. Appears alert and oriented and not as confused as yesterday. 11/28/16-patient seen and examined, stable and sent all questions appropriately. Alert and oriented 3 and currently afebrile. Patient is requesting ensure with each meal. States he was hospitalized in [place] for 18 days Objective Vitals Vital Signs Date Time Temp Pulse Resp B/P Pulse Ox O2 Delivery O2 Flow Rate FiO2 11/28/16 08:00 96.3 63 14 114/75 97 11/28/16 00:00 96.1 77 17 124/76 97 11/27/16 20:00 96.0 73 17 119/74 97 11/27/16 16:00 95.6 78 18 119/80 98 11/27/16 15:35 16 11/27/16 12:00 96.7 90 18 137/87 96 I/O 11/27/16 11/27/16 11/27/16 11/28/16 11/28/16 11/28/16 07:00 15:00 23:00 07:00 15:00 23:00 Intake Total 1244 ml 1730 ml 1112 ml 955 ml Balance 1244 ml 1730 ml 1112 ml 955 ml Intake Oral 360 ml 500 ml 240 ml 240 ml IV Total 884 ml 1230 ml 872 ml 715 ml # Voids 3 4 2 3 # Bowel Movements 1 Result Diagram: 11/28/16 0405 Objective Remarks GENERAL: NAD and apparently walking SKIN: Warm and dry. HEAD: Normocephalic. EYES: No scleral icterus. No injection or drainage. NECK: Supple, trachea midline. No JVD or lymphadenopathy. CARDIOVASCULAR: Regular rate and rhythm without murmurs, gallops, or rubs. RESPIRATORY: Breath sounds equal bilaterally. No accessory muscle use. GASTROINTESTINAL: Abdomen soft, non-tender, nondistended. MUSCULOSKELETAL: No cyanosis, or edema. BACK: tender without obvious deformity. No CVA tenderness. A/P Problem List: (1) Sepsis ICD Code: A41.9 Status: Acute (2) Sacroiliitis ICD Code: M46.1 Status: Acute (3) Rhabdomyolysis ICD Code: M62.82 Status: Acute Assessment and Plan 51-year-old man with Severe sepsis:Resolved Sacroiliitis Bacteremia -Sacrum/coccyx MRI with finding of Left sacroiliitis. Adjacent bony changes are nonspecific with osteomyelitis not excluded. -Lumbar spine MRI with finding of Scoliotic changes. 2. Minimal disc bulges at L2-3 and L3-4 levels. 3. No canal stenosis. 4. No epidural abscess. -Continue with vancomycin IV and Ancef per infectious disease specialist -Repeat blood culture NTD -Pain management with parenteral IV when necessary and Baclofen scheduled. -PT to treat . -Awaiting for medical record from hospital visit from [facility] and notes only the ED visit which were sent to us Nontraumatic rhabdomyolysis CK significantly trending down Continue Aggressive IV fluid hydration Monitor CK DVT prophylaxis: Bilateral SCDs Problem Qualifiers (1) Sepsis: Qualified Code: A41.9 - Sepsis, due to unspecified organism (2) Rhabdomyolysis: Qualified Code: M62.82 - Non-traumatic rhabdomyolysis Jay Saldana MD November 28, 2016 11:20
[2016-11-28] MEDS ORDERED: PHARMACY ORDERED LAB ONE (11:45)
[2016-11-28 12:00] VITALS: BP 118/78; PULSE 68; RESP 16; TEMP 96.3; O2SAT 98
[2016-11-28] MEDS ORDERED: DICL500 PO (13:07)
--- NOTE | 2016-11-28 13:16 | HHI.IDPN ---
Subjective Subjective Remarks Mr. Torrez is a 51-year-old male who was brought into the emergency room by emergency medical services for evaluation of worsening low back pain. Patient reports to me that he was recently discharged from [facility] on October 17 after an approximately 18 days stay where he was treated for sepsis, staph aureus bacteremia(does not report being told it was MRSA) and an abscess of the lower back. He was discharged on a 2 month supply of oral Bactrim. Patient recently moved down to [place] visiting his daughter and states that over the past 5 days he has had worsening back pain which he rates as 10 out of 10 in intensity with radiation to mostly left lower extremity. Patient reports tripping and falling down today. He also fell and hit his left shoulder as well as his left knee including the face. EMS was called by his family. On admission he had a temperature of 100, heart rate 140s. Patient met sepsis criteria and workup was initiated. Patient reports he underwent a DARRYL (based on his description) and was told it was negative. Notes reviewed D/W RN Ask for paon meds as scheduled Med records from [place] reviewed - had MSSA Temps ok No new (+) BC Has been up and walking in his room Spoke with CM - he is down here visiting his daughter. But daughter cant take him because of restrictions on her rent One BC with [employer], 2nd BC with pleomorphic GPR Antibiotics Ancef Vancomycin Lines PIV Past Medical History Asthma Cardiac problems History of sacroiliitis in September 2016 at the hospital in [place]. History of being treated with IV antibiotics for 18 days. Allergies: Coded Allergies: No Known Allergies (Unverified , 11/22/16) Objective . Vital Signs Date Time Temp Pulse Resp B/P Pulse Ox O2 Delivery O2 Flow Rate FiO2 11/28/16 08:00 96.3 63 14 114/75 97 11/28/16 00:00 96.1 77 17 124/76 97 11/27/16 20:00 96.0 73 17 119/74 97 11/27/16 16:00 95.6 78 18 119/80 98 11/27/16 15:35 16 11/27/16 11/27/16 11/28/16 15:00 23:00 07:00 Intake Total 1730 ml 1112 ml 955 ml Balance 1730 ml 1112 ml 955 ml Intake Oral 500 ml 240 ml 240 ml IV Total 1230 ml 872 ml 715 ml # Voids 4 2 3 # Bowel Movements 1 . Laboratory Tests Test 11/27/16 11/28/16 06:27 04:05 Total Creatine Kinase 4310 U/L 2904 U/L Creatine Kinase MB 9.7 NG/ML 11.0 NG/ML Creatine Kinase MB % 0.2 % 0.4 % Creatinine 0.56 MG/DL Estimat Glomerular Filtration 154 ML/MIN Rate Imaging Last Impressions Lower Extremity Ultrasound 11/22/16 1333 Signed Impressions: Service Date/Time: Tuesday, November 22, 2016 13:49 - CONCLUSION: Negative exam. No sonographic or Doppler findings of deep venous thrombosis. Fabio Srivastava MD Chest X-Ray 11/22/16 1329 Signed Impressions: Service Date/Time: Tuesday, November 22, 2016 13:43 - CONCLUSION: No acute cardiopulmonary process. Fabio Srivastava MD Sacrum/Coccyx MRI 11/22/16 0000 Signed Impressions: Service Date/Time: Tuesday, November 22, 2016 14:41 - CONCLUSION: Left sacroiliitis. Adjacent bony changes are nonspecific with osteomyelitis not excluded. Alexsi Duong MD Maxillofacial CT 11/22/16 0000 Signed Impressions: Service Date/Time: Tuesday, November 22, 2016 14:29 - CONCLUSION: Normal examination. Stevie Miller MD Lumbar Spine MRI 11/22/16 0000 Signed Impressions: Service Date/Time: Tuesday, November 22, 2016 14:41 - CONCLUSION: 1. Scoliotic changes. 2. Minimal disc bulges at L2-3 and L3-4 levels. 3. No canal stenosis. 4. No epidural abscess. Jay Melendrez MD Head CT 11/22/16 0000 Signed Impressions: Service Date/Time: Tuesday, November 22, 2016 14:26 - CONCLUSION: Normal examination. Stevie Miller MD Physical Exam GENERAL: This is a well-nourished, well-developed patient, in no apparent distress. SKIN: Warm and moist, no rasg, has redness on R side of his abdomen where he was scratching, no embolic lesions HEAD: Atraumatic. Normocephalic. No temporal or scalp tenderness. EYES: Pupils equal round and reactive. Extraocular motions intact. No scleral icterus. No injection or drainage. ENT: Nose without bleeding, purulent drainage or septal hematoma. Throat without erythema, tonsillar hypertrophy or exudate. NECK: Trachea midline. Supple, nontender, no meningeal signs. CARDIOVASCULAR: Regular rate and rhythm without murmurs, gallops, or rubs. RESPIRATORY: Clear to auscultation. Breath sounds equal bilaterally. No wheezes , rales, or rhonchi. GASTROINTESTINAL: Abdomen soft, non-tender, nondistended. MUSCULOSKELETAL: Extremities without clubbing, cyanosis, or edema. NEUROLOGICAL: Awake and alert. Grossly nonfocal. Psych cooperative IV line sites with no evidence of infection. Assessment & Plan Remarks Sepsis on presentation, resolved Left-sided sacroiliitis likely of infectious etiology. - had MSSA; DARRYL negative. Asthma by history Recs: Stop Vanco IV Can be D/C on Dicloxacillin 500 mg QID x 2 months Spoke with CM - Abx free at [facility], will give him Rx Refer to Dr Caballero for ID follow-up while he is still here in [place] Stop Ancef OK for D/C once all arrangements made for follow-up D/W patient D/W Dr Saldana D/W CM D/W Yahaira Escudero MD November 28, 2016 13:16
[2016-11-28] MEDS ORDERED: BACL10TA PO (13:21)
[2016-11-28] MEDS ORDERED: SYMB160A INH (13:21)
--- NOTE | 2016-11-28 13:24 | HHI.DS ---
Discharge Summary Admission Date November 22, 2016 at 17:10 Discharge Date: November 28, 2016 Admitting Diagnosis severe sepsis, sacroiliitis, rhabdomyolysis (1) Sepsis ICD Code: A41.9 (2) Sacroiliitis ICD Code: M46.1 (3) Rhabdomyolysis ICD Code: M62.82 Procedures none Brief History - From Admission 51-year-old man was brought to the ED by EMS for evaluation of worsening low back pain. Patient states, he was recently discharged from [facility] on October 17 after a hospitalization of 18 days for which he was treated for sepsis, bacteremia and an abscess of the lower back. He was discharged on 2 month supply of oral Bactrim. Patient recently moved down to [place] visiting his daughter and states, over the past 5 days is have worsening back pain rated 10/10 in intensity with radiation to mostly left lower extremity. Patient reports tripping and fell down today and hitting his left shoulder as well as his left knee and face for which EMS was called. Her EMR, patient had temperature of 100 heart rate of 140s for which patient was treated with 500 mL bolus fluids. He complains of intermittent myalgia. 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 Denies any IV drug use. He currently denies any GI bleed CBC/BMP: 11/28/16 0405 Significant Findings Laboratory Tests Test 11/26/16 11/27/16 11/28/16 05:04 06:27 04:05 Creatinine 0.43 MG/DL 0.56 MG/DL (0.60-1.30) (0.60-1.30) Total Creatine Kinase 83201 U/L 4310 U/L 2904 U/L (39-308) (39-308) (39-308) Creatine Kinase MB 19.6 NG/ML 9.7 NG/ML 11.0 NG/ML (0.5-3.6) (0.5-3.6) (0.5-3.6) Imaging Last Impressions Lower Extremity Ultrasound 11/22/16 1333 Signed Impressions: Service Date/Time: Tuesday, November 22, 2016 13:49 - CONCLUSION: Negative exam. No sonographic or Doppler findings of deep venous thrombosis. Fabio Srivastava MD Chest X-Ray 11/22/16 1329 Signed Impressions: Service Date/Time: Tuesday, November 22, 2016 13:43 - CONCLUSION: No acute cardiopulmonary process. Fabio Srivastava MD Sacrum/Coccyx MRI 11/22/16 0000 Signed Impressions: Service Date/Time: Tuesday, November 22, 2016 14:41 - CONCLUSION: Left sacroiliitis. Adjacent bony changes are nonspecific with osteomyelitis not excluded. Alexis Duong MD Maxillofacial CT 11/22/16 0000 Signed Impressions: Service Date/Time: Tuesday, November 22, 2016 14:29 - CONCLUSION: Normal examination. Stevie Miller MD Lumbar Spine MRI 11/22/16 0000 Signed Impressions: Service Date/Time: Tuesday, November 22, 2016 14:41 - CONCLUSION: 1. Scoliotic changes. 2. Minimal disc bulges at L2-3 and L3-4 levels. 3. No canal stenosis. 4. No epidural abscess. Jay Melendrez MD Head CT 11/22/16 0000 Signed Impressions: Service Date/Time: Tuesday, November 22, 2016 14:26 - CONCLUSION: Normal examination. Stevie Miller MD PE at Discharge GENERAL: NAD and apparently walking SKIN: Warm and dry. HEAD: Normocephalic. EYES: No scleral icterus. No injection or drainage. NECK: Supple, trachea midline. No JVD or lymphadenopathy. CARDIOVASCULAR: Regular rate and rhythm without murmurs, gallops, or rubs. RESPIRATORY: Breath sounds equal bilaterally. No accessory muscle use. GASTROINTESTINAL: Abdomen soft, non-tender, nondistended. MUSCULOSKELETAL: No cyanosis, or edema. BACK: tender without obvious deformity. No CVA tenderness. Hospital Course Sacroiliitis Bacteremia -Sacrum/coccyx MRI with finding of Left sacroiliitis. Adjacent bony changes are nonspecific with osteomyelitis not excluded. -Lumbar spine MRI with finding of Scoliotic changes. 2. Minimal disc bulges at L2-3 and L3-4 levels. 3. No canal stenosis. 4. No epidural abscess. -He was treated with vancomycin IV and Ancef per infectious disease specialist over prior to discharge switched to Diclox 500mg QID x 2 months -Repeat blood culture NTD -Pain management with parenteral IV when necessary and Baclofen scheduled. Nontraumatic rhabdomyolysis CK significantly trending down Pt Condition on Discharge: Stable Discharge Disposition: Discharge Home Discharge Time: <= 30 minutes Discharge Instructions DIET: Follow Instructions for: Heart Healthy Diet Activities you can perform: Regular-No Restrictions Follow up Referrals: Infectious Disease PCP Follow-up - 1 Week New Medications: Dicloxacillin (Dicloxacillin) 500 Mg Cap 500 MG PO QID Infection Days 14 Ref 3 CAP Baclofen (Baclofen) 10 Mg Tab 10 MG PO Q8HR PRN spasm #20 TAB Budesonide-Formoterol Inh (Symbicort Inh) 160-4.5 Mcg/Act Aero 2 PUFF INH Q12HR Breathing Treatment #1 Ref 3 INHALER Continued Medications: Albuterol 18 GM Inh (Ventolin Hfa 18 GM Inh) 90 Mcg/Act Aer 2 PUFF INH Q4-6H PRN SHORTNESS OF BREATH #1 Ref 0 INHALER Pantoprazole (Protonix) 40 Mg Tab 40 MG PO DAILY Reflux Days 14 Ref 0 TAB Discontinued Medications: Sulfamethoxazole-Trimethoprim (Bactrim) 400-80 Mg Tab 1 TAB PO BID Infection Ref 0 TAB Jay Saldana MD November 28, 2016 13:24
[2016-11-28] MEDS ORDERED: DICLOXACILLIN SODIUM 250 MG CAP PO SCH (14:00)
== END 2016-11-28 15:21 | disposition home or self-care (01) | DRG 872 ==
LOC: NEPC 13:11 → NEDA 17:10 → N07A 21:00
PROVIDERS: ADMIT Hospitalist; ATTEND Hospitalist
DX: A41.9 Sepsis, unspecified organism (principal); M62.82 Rhabdomyolysis; R65.20 Severe sepsis without septic shock; M46.1 Sacroiliitis, not elsewhere classified; S40.212A Abrasion of left shoulder, initial encounter; S80.212A Abrasion, left knee, initial encounter; S00.81XA Abrasion of other part of head, initial encounter; W01.0XXA Fall on same level from slipping, tripping and stumbling without subsequent striking against object, initial encounter; F12.90 Cannabis use, unspecified, uncomplicated; J45.909 Unspecified asthma, uncomplicated
CPT/HCPCS: 70450; 70486; 71010; 72158; 72197; 76937; 80053; 80202; 80307; 81001; 82550; 82552; 82565; 83605; 83735; 85025; 85610; 85652; 85730; 86140; 86403; 87040; 87077; 87086; 87153; 87186; 87205; 90471; 90714; 93005; 93971; 94640; 94664; 96360; 96361; 96365; A9579; J0690; J2270; J2543; J3370; J3486; J7030; J7040; J7050